=== PATIENT | male | born 1985 | race Caucasian/White ===

== ENCOUNTER 2021-07-28 10:56 | Inpatient (IN) | payer OTHER ==
[~2021-07-28] VITALS: Ht 170.2 cm; Wt 88.3 kg
[~2021-07-28 10:56] MED LIST: HYDR-3490 PO; LISI10TA22 PO
--- OUTSIDE RECORDS SUMMARY | 2021-07-28 11:03 | CCD | Continuity of Care Document ---
Author Author Adrianne GUTIERREZ MD Organization Unknown Address [address] [place] [address] Phone [phone] Care Team Providers Care Rack Washer Name Role Phone [facility] AUTThania Unavailable Problems Active Problems Provider Date Essential hypertension Onset: Alcoholic liver damage Onset: Social History Type Date Description Comments Sex Unknown Tobacco Use Start: Unknown Never Smoked Cigarettes Tobacco Use Start: Unknown Never Smoked Cigars Tobacco Use Start: Unknown Never Smoked A Pipe Tobacco Use Start: Unknown Never Used Smokeless Tobacco ETOH Use Denies alcohol use Tobacco Use Start: Unknown Patient has never smoked Recreational Drug Use Denies Drug Use Allergies, Adverse Reactions, Alerts Description No Known Drug Allergies Medications Active Medications SIG Qnty Indications Ordering Provide r Date Furosemide 40mg Tablets Rigoberto Rolon Vemlidy 25mg Tablets Unknown Lisinopril-Hydrochlorothiazide 20-12.5mg Tablets 1 by mouth every day Unknown 000 Immunizations Description No Information Available Vital Signs Date Vital Result Comment 07/16/2021 2:25pm BP Systolic 142 mmHg BP Diastolic 88 mmHg Heart Rate 77 /min Body Temperature 98.6 F Respiratory Rate 18 /min O2 % BldC Oximetry 97 % Weight 187.00 lb Weight 84.823 kg Height 67 inches 5'7" BMI (Body Mass Index) 29.3 kg/m2 BSA (Body Surface Area) 1.97 m2 06/10/2021 11:31am BP Systolic 160 mmHg BP Diastolic 103 mmHg Heart Rate 56 /min O2 % BldC Oximetry 98 % Weight 176.00 lb Weight 79.834 kg Height 67 inches 5'7" BMI (Body Mass Index) 27.6 kg/m2 BSA (Body Surface Area) 1.92 m2 Results Test Acquired Date Facility Test Result H/L Range Note Inhouse [facility] 06/10/2021 In Office [facility] Color yellow Normal: Yellow Ua Appearance clear Normal: Clear Spec [place] 1.005 1.001-1.030 Ua PH Test Strip 5 5-9 Leukocytes - Normal: Negative Ua Nitrate - Normal: Negative Ua Protein - Normal: Negative Inhouse Glucose - Normal: Negative Ua Ketones - Noraml: Negative Urobilinogen - Normal: Negative Ua Bilirubin - Normal: Negative Blood - Noraml: Negative Procedures Date Code Description Status 07/16/2021 59836 Office/Outpatient New Low MDM 30 -44 Minutes Completed 06/10/2021 69475 Office/Outpatient New Moderate M DM 45-59 Minutes Completed Medical Devices Description No Information Available Encounters Type Date Location Provider Dx Diagnosis Office Visit 07/16/2021 2:30p [facility] Satya Gutierrez MD N 43.2 Other hydrocele K42.9 Umbilical hernia without obs truction or gangrene K70.31 Alcoholic cirrhosis of liver with ascites Assessments Date Code Description Provider 07/16/2021 N43.2 Other hydrocele Satya Gutierrez MD 07/16/2021 K42.9 Umbilical hernia without obstruc tion or gangrene Satya Gutierrez MD 07/16/2021 K70.31 Alcoholic cirrhosis of liver wit h ascites Satya Gutierrez MD 06/10/2021 N43.2 Other hydrocele Thania Bhatt 06/10/2021 Z71.2 Person consulting fo r explanation of examination or test findings Jake Martell M.D. Plan of Treatment 07/16/2021 - Satya Gutierrez MD* N43.2 Other hydrocele* Comments:* He probably would benefit from an attempt at ligation of the patent processes vaginalis. However, some risk of postoperative ascitic leak. * K42.9 Umbilical hernia without obstruction or gangrene* Comments:* If the patient is taken to surgery for ligation of the patent processes vaginalis would consider repair of the umbilical hernia at that time. * K70.31 Alcoholic cirrhosis of liver with ascites* Comments:* Discussed the situation with his flight attendant ramp to see if he should have additional treatment for his ascites prior to attempt at processes vaginalis ligation and also to inquire whether a second opinion from a surgeon associated with a flight attendant ramp as appropriate.I will contact the patient after I have had a discussion with the flight attendant ramp. Functional Status Description No Information Available Mental Status Description No Information Available Referrals Description No Information Available
--- OUTSIDE RECORDS SUMMARY | 2021-07-28 11:03 | CCD | Continuity of Care Document ---
Author Author Adrianne GUTIERREZ MD Organization Unknown Address [address] [place] [address] Phone [phone] Care Team Providers Care Hyperion Essbase Developer Name Role Phone [facility] [employer] Unavailable Problems Active Problems Provider Date [...] Yellow Ua Appearance clear Normal: Clear Spec [place] 1.005 1.001-1.030 Ua PH Test Strip 5 5-9 Leukocytes - Normal: Negative Ua Nitrate - Normal: Negative Ua Protein - Normal: Negative Inhouse Glucose - Normal: Negative Ua Ketones - Noraml: Negative Urobilinogen - Normal: Negative Ua Bilirubin - Normal: Negative Blood - Noraml: Negative Procedures Date Code Description Status 07/16/2021 35422 Office/Outpatient New Low MDM 30 -44 Minutes Completed 06/10/2021 26594 Office/Outpatient New Moderate M DM 45-59 Minutes Completed Medical Devices Description No Information Available Encounters Type Date Location Provider Dx Diagnosis Office Visit 07/16/2021 2:30p [facility] Satya Gutierrez MD N 43.2 [...] ascites* Comments:* Discussed the situation with his cocoa mill operator to see if he should have additional treatment for his ascites prior to attempt at processes vaginalis ligation and also to inquire whether a second opinion from a surgeon associated with a cocoa mill operator as appropriate.I will contact the patient after I have had a discussion with the cocoa mill operator. Functional Status Description No Information Available Mental Status Description No Information Available Referrals Description No Information Available
--- OUTSIDE RECORDS SUMMARY | 2021-07-28 11:03 | CCD | Continuity of Care Document ---
Author Author Adrianne GUTIERREZ MD Organization Unknown Address [address] [place] [address] Phone [phone] Care Team Providers Care Community Mental Health Worker Name Role Phone [facility] [place] [facility] AUT[employer]ania Unavailable Problems Active Problems Provider [...] Yellow Ua Appearance clear Normal: Clear Spec [place] 1.005 1.001-1.030 Ua PH Test Strip 5 5-9 Leukocytes - Normal: Negative Ua Nitrate - Normal: Negative Ua Protein - Normal: Negative Inhouse Glucose - Normal: Negative Ua Ketones - Noraml: Negative Urobilinogen - Normal: Negative Ua Bilirubin - Normal: Negative Blood - Noraml: Negative Procedures Date Code Description Status 07/16/2021 62131 Office/Outpatient New Low MDM 30 -44 Minutes Completed 06/10/2021 99848 Office/Outpatient New Moderate M DM 45-59 Minutes Completed Medical Devices Description No Information Available Encounters Type Date Location Provider Dx Diagnosis Office Visit 07/16/2021 2:30p [facility] Satya Gutierrez MD N 43.2 [...] ascites* Comments:* Discussed the situation with his industrial safety and health technician to see if he should have additional treatment for his ascites prior to attempt at processes vaginalis ligation and also to inquire whether a second opinion from a surgeon associated with a industrial safety and health technician as appropriate.I will contact the patient after I have had a discussion with the industrial safety and health technician. Functional Status Description No Information Available Mental Status Description No Information Available Referrals Description No Information Available
--- OUTSIDE RECORDS SUMMARY | 2021-07-28 11:03 | CCD | Continuity of Care Document ---
Author Author Urology Resource Schedule, Aysha Gill Organization Unknown Address [address] [place] [address] Phone [phone] Care Team Providers Care Datastage Architect Name Role Phone [facility] [place] [facility] AUT Unavailable Problems Description No Information Available Social History Type Date Description Comments Sex Unknown Allergies, Adverse Reactions, Alerts Description No Information Available Medications Description No Information Available Immunizations Description No Information Available Vital Signs Description No Information Available Results Test Acquired Date Facility Test Result H/L Range Note Inhouse Ua 06/10/2021 In Office Ua Color yellow Normal: Yellow Ua Appearance clear Normal: Clear Spec [place] 1.005 1.001-1.030 Ua PH Test Strip 5 5-9 Leukocytes - Normal: Negative Ua Nitrate - Normal: Negative Ua Protein - Normal: Negative Inhouse Glucose - Normal: Negative Ua Ketones - Noraml: Negative Urobilinogen - Normal: Negative Ua Bilirubin - Normal: Negative Blood - Noraml: Negative Procedures Description No Information Available Medical Devices Description No Information Available Encounters Description No Information Available Assessments Description No Information Available Plan of Treatment No Information Available Functional Status Description No Information Available Mental Status Description No Information Available Referrals Description No Information Available
--- OUTSIDE RECORDS SUMMARY | 2021-07-28 11:03 | CCD | Continuity of Care Document ---
Author Author Adrianne GUTIERREZ MD Organization Unknown Address [address] [place] [address] Phone [phone] Care Team Providers Care Forward Air Controller/Air Officer Name Role Phone [facility] [place] [facility] AUTThania Unavailable Problems Active Problems Provider [...] Yellow Ua Appearance clear Normal: Clear Spec [place] 1.005 1.001-1.030 Ua PH Test Strip 5 5-9 Leukocytes - Normal: Negative Ua Nitrate - Normal: Negative Ua Protein - Normal: Negative Inhouse Glucose - Normal: Negative Ua Ketones - Noraml: Negative Urobilinogen - Normal: Negative Ua Bilirubin - Normal: Negative Blood - Noraml: Negative Procedures Date Code Description Status 07/16/2021 27416 Office/Outpatient New Low MDM 30 -44 Minutes Completed 06/10/2021 86487 Office/Outpatient New Moderate M DM 45-59 Minutes Completed Medical Devices Description No Information Available Encounters Type Date Location Provider Dx Diagnosis Office Visit 07/16/2021 2:30p [facility] Satya Gutierrez MD N [...] ascites* Comments:* Discussed the situation with his poultry offal worker to see if he should have additional treatment for his ascites prior to attempt at processes vaginalis ligation and also to inquire whether a second opinion from a surgeon associated with a poultry offal worker as appropriate.I will contact the patient after I have had a discussion with the poultry offal worker. Functional Status Description No Information Available Mental Status Description No Information Available Referrals Description No Information Available
--- OUTSIDE RECORDS SUMMARY | 2021-07-28 11:03 | CCD ---
Continuity of Care Document (CCD) Created on: 06/10/2021 Adrianne Mcknight External Reference #: [id number] : 1985 Sex: Male Author Author Adrianne VELA M.D. Organization Unknown Address [facility] [address] [place] [address] Phone [phone] Care Team Providers Care Clearing Supervisor Name Role Phone [facility] [place] [facility] [employer]Thania Unavailable Problems Active Problems Provider [...] Tablets 1 by mouth every day Unknown 0 000 Immunizations Description No Information Available Vital Signs Date Vital Result Comment 06/10/2021 11:31am BP Systolic 160 mmHg BP [...] Yellow Ua Appearance clear Normal: Clear Spec [place] 1.005 1.001-1.030 Ua PH Test Strip 5 5-9 Leukocytes - Normal: Negative Ua Nitrate - Normal: Negative Ua Protein - Normal: Negative Inhouse Glucose - Normal: Negative Ua Ketones - Noraml: Negative Urobilinogen - Normal: Negative Ua Bilirubin - Normal: Negative Blood - Noraml: Negative Procedures Date Code Description Status 06/10/2021 58946 Office/Outpatient New MDM 15- 29 Minutes Completed Medical Devices Description No Information Available Encounters Type Date Location Provider Dx Diagnosis Office Visit 06/10/2021 11:00a [facility] Jake Vela M.D. N43.2 Other hydrocele Z71.2 Person consulting for explan ation of exam or test findings Assessments Date Code Description Provider 06/10/2021 N43.2 Other hydrocele Thania Bhatt 06/10/2021 Z71.2 Person consulting fo r explanation of examination or test findings Jake Vela M.D. Plan of Treatment 06/10/2021 - Jake Vela M.D.* N43.2 Other hydrocele* Comments:* 1. Patient presents to the clinic today for evaluation and management of testicular swelling.2. Physical examination showed left communicating hydrocele, otherw ise unremarkable.3. In house urinalysis was negative which today. Urine culture and sensitivity done on 04/27/21 did not show any growth.4. Patient was referred to General Surgery for surgical corrections.5. Patient verbalized understanding and agreed to the care plan. All of his questions were answered. 6. Patient was advised to call or RTC if he develops any new concerns or complaints.7. No scheduled follow-up appointment at this time, will be glad to see patient back as needed. * Z71.2 Person consulting for explanation of examination or test findings* Comments:* Urinalysis done on 04/28/21 was negative. Urine culture and sensitivity done on 04/27/21 did not show any growth.Result was reviewed with the patient at length. Functional Status Description No Information Available Mental Status Description No Information Available Referrals Description No Information Available
--- OUTSIDE RECORDS SUMMARY | 2021-07-28 11:04 | CCD ---
Author Author [facility] Organization [facility] Address Unknown Phone Unavailable Care Team Providers Care Senior Business Process Analyst Name Role Phone Sondra GUTIERREZ MD Unavailable Unavailable Sondra GUTIERREZ MD Unavailable Unavailable Sondra GUTIERREZ MD Unavailable Unavailable Sondra GUTIERREZ MD Unavailable Unavailable Sondra GUTIERREZ MD Unavailable Unavailable Sondra GUTIERREZ MD Unavailable Unavailable Sondra GUTIERREZ MD Unavailable Unavailable Sondra GUTIERREZ MD Unavailable Unavailable Sondra GUTIERREZ MD Unavailable Unavailable Sondra GUTIERREZ MD Unavailable Unavailable Sondra GUTIERREZ MD Unavailable Unavailable Sondra GUTIERREZ MD Unavailable Unavailable Sondra GUTIERREZ MD Unavailable Unavailable Sondra GUTIERREZ MD Unavailable Unavailable Sondra GUTIERREZ MD Unavailable Unavailable Sondra GUTIERREZ MD Unavailable Unavailable Abiel VELA MD Unavailable Unavailable Abiel VELA MD Unavailable Unavailable Abiel VELA MD Unavailable Unavailable Abiel VELA MD Unavailable Unavailable Abiel VELA MD Unavailable Unavailable Abiel VELA MD Unavailable Unavailable Abiel VELA MD Unavailable Unavailable Abiel VELA MD Unavailable Unavailable Abiel VELA MD Unavailable Unavailable Abiel VELA MD Unavailable Unavailable Abiel VELA MD Unavailable Unavailable Abiel VELA MD Unavailable Unavailable Abiel VELA MD Unavailable Unavailable Abiel VLEA MD Unavailable Unavailable Abiel VELA MD Unavailable Unavailable Abiel VELA MD Unavailable Unavailable Abiel VELA MD Unavailable Unavailable Abiel VELA MD Unavailable Unavailable Abiel VELA MD Unavailable Unavailable Abiel VELA MD Unavailable Unavailable Abiel VELA MD Unavailable Unavailable OBEN, T DANNIE MD Unavailable Unavailable OBEN, T DANNIE MD Unavailable Unavailable OBEN, T DANNIE MD Unavailable Unavailable OBEN, T DANNIE MD Unavailable Unavailable OBEN, T DANNIE MD Unavailable Unavailable OBEN, T DANNIE MD Unavailable Unavailable OBEN, T DANNIE MD Unavailable Unavailable OBEN, T DANNIE MD Unavailable Unavailable OBEN, T DANNIE MD Unavailable Unavailable OBEN, T DANNIE MD Unavailable Unavailable OBEN, T DANNIE MD Unavailable Unavailable OBEN, T DANNIE MD Unavailable Unavailable OBEN, T DANNIE MD Unavailable Unavailable OBEN, T DANNIE MD Unavailable Unavailable OBEN, T DANNIE MD Unavailable Unavailable OBEN, T DANNIE MD Unavailable Unavailable OBEN, T DANNIE MD Unavailable Unavailable OBEN, T DANNIE MD Unavailable Unavailable OBEN, T DANNIE MD Unavailable Unavailable OBEN, T DANNIE MD Unavailable Unavailable OBEN, T DANNIE MD Unavailable Unavailable OBEN, T DANNIE MD Unavailable Unavailable OBEN, T DANNIE MD Unavailable Unavailable OBEN, T DANNIE MD Unavailable Unavailable OBEN, T DANNIE MD Unavailable Unavailable OBEN, T DANNIE MD Unavailable Unavailable OBEN, T DANNIE MD Unavailable Unavailable OBEN, T DANNIE MD Unavailable Unavailable OBEN, T DANNIE MD Unavailable Unavailable OBEN, T DANNIE MD Unavailable Unavailable OBEN, T DANNIE MD Unavailable Unavailable OBEN, T DANNIE MD Unavailable Unavailable OBEN, T DANNIE MD Unavailable Unavailable OBEN, T DANNIE MD Unavailable Unavailable OBEN, T DANNIE MD Unavailable Unavailable OBEN, T DANNIE MD Unavailable Unavailable Sondra GUTIERREZ MD Unavailable Unavailable Sondra GUTIERREZ MD Unavailable Unavailable Sondra GUTIERREZ MD Unavailable Unavailable Sondra GUTIERREZ MD Unavailable Unavailable Sondra GUTIERREZ MD Unavailable Unavailable Sondra GUTIERREZ MD Unavailable Unavailable Sondra GUTIERREZ MD Unavailable Unavailable Sondra GUTIERREZ MD Unavailable Unavailable Sondra GUTIERREZ MD Unavailable Unavailable Sondra GUTIERREZ MD Unavailable Unavailable Sondra GUTIERREZ MD Unavailable Unavailable Sondra GUTIERREZ MD Unavailable Unavailable Sondra GUTIERREZ MD Unavailable Unavailable Sondra GUTIERREZ MD Unavailable Unavailable Sondra GUTIERREZ MD Unavailable Unavailable Sondra GUTIERREZ MD Unavailable Unavailable OBEN, T DANNIE Unavailable Unavailable OBEN, T DANNIE MD Unavailable Unavailable OBEN, T DANNIE MD Unavailable Unavailable OBEN, T DANNIE MD Unavailable Unavailable OBEN, T DANNIE MD Unavailable Unavailable OBEN, T DANNIE MD Unavailable Unavailable OBEN, T DANNIE MD Unavailable Unavailable OBEN, T DANNIE MD Unavailable Unavailable OBEN, T DANNIE MD Unavailable Unavailable OBEN, T DANNIE MD Unavailable Unavailable OBEN, T DANNIE MD Unavailable Unavailable OBEN, T DANNIE MD Unavailable Unavailable OBEN, T DANNIE MD Unavailable Unavailable OBEN, T DANNIE MD Unavailable Unavailable OBEN, T DANNIE MD Unavailable Unavailable OBEN, T DANNIE MD Unavailable Unavailable OBEN, T DANNIE MD Unavailable Unavailable OBEN, T DANNIE MD Unavailable Unavailable OBEN, T DANNIE MD Unavailable Unavailable OBEN, T DANNIE MD Unavailable Unavailable OBEN, T DANNIE MD Unavailable Unavailable OBEN, T DANNIE MD Unavailable Unavailable OBEN, T DANNIE MD Unavailable Unavailable OBEN, T DANNIE MD Unavailable Unavailable OBEN, T DANNIE MD Unavailable Unavailable OBEN, T DANNIE MD Unavailable Unavailable OBEN, T DANNIE MD Unavailable Unavailable OBEN, T DANNIE MD Unavailable Unavailable OBEN, T DANNIE MD Unavailable Unavailable OBEN, T DANNIE MD Unavailable Unavailable OBEN, T DANNIE MD Unavailable Unavailable OBEN, T DANNIE MD Unavailable Unavailable OBEN, T DANNIE MD Unavailable Unavailable OBEN, T DANNIE MD Unavailable Unavailable OBEN, T DANNIE MD Unavailable Unavailable OBEN, T DANNIE MD Unavailable Unavailable OBEN, T DANNIE MD Unavailable Unavailable OBEN, T DANNIE MD Unavailable Unavailable OBEN, T DANNIE MD Unavailable Unavailable OBEN, T DANNIE MD Unavailable Unavailable OBEN, T DANNIE MD Unavailable Unavailable OBEN, T DANNIE MD Unavailable Unavailable OBEN, T DANNIE MD Unavailable Unavailable OBEN, T DANNIE MD Unavailable Unavailable OBEN, T DANNIE MD Unavailable Unavailable OBEN, T DANNIE MD Unavailable Unavailable OBEN, T DANNIE MD Unavailable Unavailable OBEN, T DANNIE MD Unavailable Unavailable OBEN, T DANNIE MD Unavailable Unavailable OBEN, T DANNIE MD Unavailable Unavailable OBEN, T DANNIE MD Unavailable Unavailable OBEN, T DANNIE MD Unavailable Unavailable OBEN, T DANNIE MD Unavailable Unavailable OBEN, T DANNIE MD Unavailable Unavailable OBEN, T DANNIE MD Unavailable Unavailable OBEN, T DANNIE MD Unavailable Unavailable OBEN, T DANNIE MD Unavailable Unavailable Taisha Dutta MD (Jack) Unavailable Unavailable Tin, Taisha Jean (Augusto) MD Unavailable Unavailable Tin, Taisha Jean (Augusto) MD Unavailable Unavailable Tin, Taisha Jean (Augusto) MD Unavailable Unavailable Tin, Taisha Jean (Augusto) MD Unavailable Unavailable Tin, Taisha Jean (Augusto) MD Unavailable Unavailable Tin, Taisha Jean (Augusto) MD Unavailable Unavailable Tin, Taisha Jean (Augusto) MD Unavailable Unavailable Tin, Taisha Jean (Augusto) MD Unavailable Unavailable Tin, Taisha Jean (Augusto) MD Unavailable Unavailable Tin, Taisha Jean (Augusto) MD Unavailable Unavailable Tin, Taisha Jean (Augusto) MD Unavailable Unavailable Tin, Taisha Jean (Augusto) MD Unavailable Unavailable Tin, Taisha Jean (Augusto) MD Unavailable Unavailable Tin, Taisha Jean (Augusto) MD Unavailable Unavailable Tin, Taisha Jean (Augusto) MD Unavailable Unavailable Tin, Taisha Jean (Augusto) MD Unavailable Unavailable Tin, Taisha Jean (Augusto) MD Unavailable Unavailable Tin, Taisha Jean (Augusto) MD Unavailable Unavailable Tin, Taisha Jean (Augusto) MD Unavailable Unavailable Tin, Taisha Jean (Augusto) MD Unavailable Unavailable Tin, Taisha Jean (Augusto) MD Unavailable Unavailable Tin, Taisha Jean (Augusto) MD Unavailable Unavailable Tin, Taisha Jean (Augusto) MD Unavailable Unavailable Tin, Taisha Jean (Augusto) MD Unavailable Unavailable Tin, Taisha Jean (Augusto) MD Unavailable Unavailable Tin, Taisha Jean (Augusto) MD Unavailable Unavailable Tin, Taisha Jean (Augusto) MD Unavailable Unavailable Tin, Taisha Jean (Augusto) MD Unavailable Unavailable Tin, Taisha Jean (Augusto) MD Unavailable Unavailable Tin, Taisha Jean (Augusto) MD Unavailable Unavailable Tin, Taisha Jean (Augusto) MD Unavailable Unavailable Tin, Taisha Jean (Augusto) MD Unavailable Unavailable Tin, Taisha Jean (Augusto) MD Unavailable Unavailable Tin, Taisha Jean (Augusto) MD Unavailable Unavailable Tin, Taisha Jean (Augusto) MD Unavailable Unavailable Tin, Taisha Jean (Augusto) MD Unavailable Unavailable Tin, Taisha Jean (Augusto) MD Unavailable Unavailable Tin, Taisha Jean (Augusto) MD Unavailable Unavailable Tin, Taisha Jean (Augusto) MD Unavailable Unavailable Tin, Taisha Jean (Augusto) MD Unavailable Unavailable Tin, Taisha Jean (Augusto) MD Unavailable Unavailable Tin, Taisha Jean (Augusto) MD Unavailable Unavailable Tin, Taisha Jean (Augusto) MD Unavailable Unavailable Tin, Taisha Jean (Augusto) MD Unavailable Unavailable Tin, Taisha Jean (Augusto) MD Unavailable Unavailable Tin, Taisha Jean (Augusto) MD Unavailable Unavailable Tin, Taisha Jean (Augusto) MD Unavailable Unavailable Tin, Taisha Jean (Augusto) MD Unavailable Unavailable Tin, Taisha Jean (Augusto) MD Unavailable Unavailable Tin, Taisha Jean (Augusto) MD Unavailable Unavailable Tin, Taisha Jean (Augusto) MD Unavailable Unavailable Tin, Taisha Jean (Augusto) MD Unavailable Unavailable Tin, Taisha Jean (Augusto) MD Unavailable Unavailable Tin, Taisha Jean (Augusto) MD Unavailable Unavailable Tin, Taisha Jean (Augusto) MD Unavailable Unavailable Tin, Taisha Jean (Augusto) MD Unavailable Unavailable Tin, Taisha Jean (Augusto) MD Unavailable Unavailable Re-disclosure Warning The records that you are about to access may contain information from federally-assisted alcohol or drug abuse programs. If such information is present, then the following federally mandated warning applies: This information has been disclosed to you from records protected by federal confidentiality rules (42 CFR part 2). The federal rules prohibit you from making any further disclosure of this information unless further disclosure is expressly permitted by the written consent of the person to whom it pertains or as otherwise permitted by 42 CFR part 2. A general authorization for the release of medical or other information is NOT sufficient for this purpose. The Federal rules restrict any use of the information to criminally investigate or prosecute any alcohol or drug abuse patient.The records that you are about to access may contain highly sensitive health information, the redisclosure of which is protected by Article 27-F of the [facility] Public Health law. If you continue you may have access to information: Regarding HIV / AIDS; Provided by facilities licensed or operated by the [facility] Office of Mental Health; or Provided by the [facility] Office for People With Developmental Disabilities. If such information is present, then the following [facility] mandated warning applies: This information has been disclosed to you from confidential records which are protected by state law. State law prohibits you from making any further disclosure of this information without the specific written consent of the person to whom it pertains, or as otherwise permitted by law. Any unauthorized further disclosure in violation of state law may result in a fine or retirement sentence or both. A general authorization for the release of medical or other information is NOT sufficient authorization for further disc losure. Encounters Encounter Providers Location Date Indications Data Source(s ) Outpatient Attender: JARAD GUTIERREZ MD Family Practice 07/16/2021 0 2:30:00 PM EDT [facility] ([facility]) Outpatient Attender: JARAD GUTIERREZ MD 2020 02:22:00 PM EDT - 07/16/2021 02:22:00 PM EDT [facility] Outpatient Attender: DANNIE VELA MD 06/10/20 11:03:00 AM EDT - 06/10/2021 11:03:00 AM EDT [facility] Outpatient Attender: DANNIE VELA MD Family Practice 06/10/2021 11:00:0 0 AM EDT [facility] ([facility]) Attender: Taisha Dutta MD (Jack) 08/01/2020 08: 20:10 PM EDT [facility] Attender: Taisha Dutta MD (Jack) 07/31/2020 08: 20:10 PM EDT [facility] Attender: Taisha Dutta MD (Jack) 07/25/2020 08: 20:10 PM EDT [facility] Attender: Taisha Dutta MD (Jack) 06/26/2020 08: 20:09 PM EDT [facility] Medications No Information Insurance Providers Payer name Policy type / Coverage type Policy ID Covered democrat ID Covered democrat's relationship to de anda Policy De Anda Plan Information [facility] U [id number] Self [id number] Spectafy [id number] [facility] [place] [id number] 18 [id number] [facility] ACTIVE DUTY [id number] SP [id number] ACTIVE DUTY [id number] SP [id number] [facility] Problems, Conditions, and Diagnoses Code Display Name Description Problem Type Effective Dates Data Source(s) N432 Other hydrocele Other hydrocele Diagnosis 06/10/2021 11:0 3:00 AM EDT [facility] Surgeries/Procedures Procedure Description Date Indications Data Source(s) OFFICE OUTPATIENT NEW 30 MINUTES 07/16/2021 12:00:00 A M EDT [facility] ([facility]) OFFICE OUTPATIENT NEW 45 MINUTES 06/10/2021 12:00:00 A M EDT [facility] ([facility]) OFFICE OUTPATIENT NEW 20 MINUTES 06/10/2021 12:00:00 A M EDT [facility] ([facility]) Results ID Date Data Source [id number] 06/10/2021 03:48:00 PM EDT [facility] ([facility]) Name Value Range Interpretation Code Description Data Francine rce(s) Supporting Document(s) Appearance of Urine Laboratory test result [facility] ([facility]) Color of Urine Laboratory test result [facility] ([facility]) Spec [place] 1.005 1.001-1.030 [facility] ([facility]) Leukocytes Laboratory test result [facility] ([facility]) Nitrate [Presence] in Urine Laboratory test result [facility] ([facility]) pH of Urine by Test strip 5 5-9 [facility] NT ([facility]) Protein [Presence] in Urine by Test strip Laboratory test result [facility] ([facility]) Inhouse Glucose Laboratory test result [facility] ([facility]) Urobilinogen Laboratory test result [facility] ([facility]) Bilirubin.total [Presence] in Urine by Test strip Laboratory test res ult [facility] ([facility]) Ketones [Presence] in Urine by Test strip Laboratory test result [facility] ([facility]) Blood type and Indirect antibody screen panel - Blood Laboratory test result [facility] ([facility]) ID Date Data Source [id number] 07/31/2020 01:00:00 PM EDT [facility] Name Value Range Interpretation Code Description Data Francine rce(s) Supporting Document(s) Follow Up [facility] WTOMKu5lIlMXWvAqPBVgTuwCAWibMEbnPSZiN9C1MFywMl4NXQeznvUfWNYgOm9+KGQtVB7hqd3mDTNj gMy [file] mineral engineer+Yanb8K02//beGSofxX/0yO+DBEjxbcTyCOAmiY0HXCPYxALhrGmBruz2GXDZw6uLOFylhNc9x8/u9 [file] ywGJrUFRTlf/wNrFtqyVRipMTFUGTKnKpHxmLbLHHH ZHhgXFUH3na3PuAXfx8lyWtTtaW8gcqWwrMwjPFTPLFP45nPgLsz9f+2ynPRU1W17Ws6jWzSzcgqQOki E4BO8I7rU4sm6ZL1Cs+lAbKuHD+tDiMvSfY8Y//5bFGD4u78KvC507AqP65C+cGp5YFsB/f7U4Vq4FsR l48XeS0GyOjL+Zgxns4KWxwGKT/DpUVdKnogYxkuI0 MoSX7iiFnoYQYvNV8pAJowyHYVn6jzif+LRNRuPlsAXllj/pYTJid14epfPEOou73eY3O0iN5rwa7+b5 bAX+nOb+06ABDx8zkkf7TIVoQ5VONeLEqj4tetk4qAYcUkvdoHPGE0zXO748kbXDlqMHdBO1m6+3Sm/o 0pzd2TSSRuDG67cEqrA8765MNg3+EuB7Jgcr+e7V6h mGhb4xhNaWDOIs9+K/Side Stitcher/Z8pSJ2HjcTI0Tbo350cBZ2A5G5rB5ADn8A4KhFa/ojCjwO037NXztY4n+a X75aBTt1nUEaVFosjVJmFMjyNLLo6WEwlaUfiVvWCjN2x+suiDCvvq+WizY8oeDfq7Wg02O00pXEk/kK 07hfzQ+Epw+qXuR2UtqGcM7HH6vlR/88QKv1Vmrn55 P7+UnQtxTj0AR5VbDgRlKL15ePX5pBAMyhFVauK7v1mAWJsO+U3W3oCMb8T2ZvRPtk8yglwtT2R1+asF +ZvakANcxSyPz0iqF19j73hPm0Vv1xIAlZ06959Cyhhd0+bBcP6Z2X1kYHj3Yf5S5WWKmxVELt1EWvoO 059ErOEU0Za7q7a3O5O88E6B6r6NLBozOeb1pdkg10 [file] vp platforms+5UD7qxe/dt+/KrSemLax/FaKom5jZTsBiYZLLIs [file] f+qZBZgfldHTPd4JT96pL3YaIlL5Yub4DzpEF34tjdU3cS6SD0Ts4goWe769p91hu+yarn spinner/92qJt+Wm+t [file] iP++Iván/+HOWqOqjm+WjXXXFNqLOlfmdKj+HErEgYlOcqVuhHEjVrp9Z2KLnnsfUDZ5nmAbCwCeVduzU YppjGd5SSm1sy7Wxvye6GZfzapCuk6vj8tq2od88OduCs629P1FlUOeR5M/AeAneNH+HI7dHvMYfOi5c Y5ABecEZjI3MyXJW9Wo31QXJu4Fd/BL1INWcbQja2A J6HU4U6cDfNe+rCWcINnGKLgP4dWati2sEJQsHuum/1Zdf0Pewb00mAuAJRmv/Kk18ba7Zku2xsbFYRB 02iNohb2YE5ZNKPsB3Ef9K7LY1VTikrHGhI7rxnR7NeKHzBJw8J77I2nsrTbv6s+/Pizano/6IeyGViJujkf [file] QqI7PVX4wHWqWg5CQBW9Xqt4PNvuJOPKFw== ID Date Data Source [id number] 07/31/2020 12:00:00 AM EDT [facility] Name Value Range Interpretation Code Description Data Francine rce(s) Supporting Document(s) SARS coronavirus 2 RNA panel N [facility] This lab was ordered by [facility], [place] ([facility]) and reported by [facility]. 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+HozUh9CVsLwnbZriMxUIjVSD9PLOUlbX5SQryd [file] CÉSAR+8hUumY/++Q1qLfKpwPFrwKODp3cciskPBT1zom [file] 5zTojme+BdKpkq32rl0oM4SsRdrGEYBnkPYE0ah7e2f7ihcP7mN08YFBjrmF8uVu+l+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 helper/rl0YPtkfp c42Zep/tNf/+iZ4epzoYKTvzw21ROJ8xkJ4MONh8Mtto237y/zcqULyCP/rw95/rEl+rYnU+J8b/Ih3z E1tcs4cdq8v2a/eWzRD+8FlVvs345sg7lfHy6PKqYj ybDmKqw07+60WVorWeMv561MF46VRZ59Aae5v5xydpiWYgTG6OTrf9O/a/X7p5hm/lmhgz2WO3Pd6uy3 LhTMLvxpEvFz6LZttBSSbu5xKMWvG8//t1LQ/18PdKDQHWCQf/JSgLf0N9kRKuZkWiXiIunVcFmDMb5m 6t7KEHVLMzETMEqqlvoO443gqFVRCbspnON4NWECnL [file] sat6oyLRU6ZsxdWnxEj+vJeAmtN63k8+A3BE42e/Simón/Nk+vGCcLqwMr+0UWavFeb7v/WYQMOOhTRsZF aza4AMpSFB8abIN4Q+huWNVRYPPtik4aF8ueIM5rdg 2QUg9TqpBfe8K/+UDtiHhMf668aqSl/KzRFFCtJDSVkVwfQ1YScKzm3h3D1L+mTOTvX82ZPD2QPUBXOk CP03Jv2ATV1B7lzbYNCy9t9pbUrLnYPd1UW31QadTQTcmEq+Vw+tHNd07jMP9nekqXfz3XBC3b3QLZuj YPLg8t9dgxXgQPVCjtmWmQiEQGGbLfwh6NuBgZbRK2 lnceneVsH1o9+oh3gyIlwDGmXQflj4W47YwUTzmrqgrwLo5pAGyLjQAetRcJTXO2G5puF/ZoVQYIsHAF 3xffYzd7uHobPN+hoVURxAt0JvKKyZsIEgJMeZYDqm5oV43obN6Y8taTowylFeEakxx0EJK9Q9EUVnmX jwqMnidyFkXN7O5WGNuL+L7WkvCP/upaH2lnckMTUf RlaJA2bItSfNUzRQ+0Q5sjrgeBgdD4srlLm7TUSvMhgf/Nicho/xabbJFRUhwyszvM5/zl/mGyxzWpaHfD [file] vp platforms+GPFJ/zusuCtqzoXjKV/AQNmk2v1y8EMaUVQA1/qecl155sZUKFYFAX1JiSbzV+bXoFV5mE47s4K+e [file] +4tHoeELPYWM+I3xoo3tFrg/VMEM1N+iobKazjWc/FoEBIwVbiiATG62hwot942oVHFRXLq3QdWl+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 [file] aKm8juNXwt56jIUX8yLAIg9Q1YrSO+5XAjmM1dnjV3wfEt5ujQ4EVIsUb3VHGMVL6NDjZZ0Au/rG+Nguyễn [file] 2V49+oP2AYQCGX1sR6AZnOXi5XWPQhSil7ewfhWa2Y+nN/8UJggGrxv9k1NUa0L71iFnfxEPvDp5H/Salgado SI3UIAkzSKqZT7w0eTgyf9bh0pz81gb6QXzpYH5aOI Ik9wT1+iZxQxfxA1V+ThQUJrAn3C1YkCEZ/xLlxxNMTvvcgAlz8wBOxQYO18E4g8fhwyEK7lb0squZrQ h1njR0EC4IKf8LexNhHdndfxKK2YzGDdp4TBeZFlL/EYfbxI3uK302HP9djWwb5hj2wLIMA8qnr76cf7 1n0IgCvcWfP/L7/cjntsVwPYt3JvXE5in/aGqY0Skr vLNajLU08gLEI6SAHSL+5yY/xxuPTkgk1w5VTHByAiMIkSNOLNHdMHWixFpezYCU6l6InGKZdJGtiW2L dcv+GD4ntPpTkoOHwlbmmB0ssVo9pYhxZq+C801mthUBdsteM1j7/Uky4Hmu8s6LQyqiL3yvJ4xs/cJP OKiz55kq9r6XVj1QmPrMI7hdCKd625CajbI7hZV7Av QfiP5vkvaO+Ho3uY/D6VQBX0JOpwhfUaiYIhPM4SQA9bh2QcKAQrPFVwr5DvAFv6W2rsbui6sSSeJH9+ j0IqTYPpYKyvLsRoXrHgHTPyXzjrCPVqZSEfwXuzRU8hPdKLhscATSofelFicSHhCR0XLS4ts4VaUDVr WPGzd1KxQXd5Q3GhvENtrkVaNpmfvXMOZMWiGSOpJO CzY7FwICSqF3dVKNv4Z1Z2ANK4YXJOIVDsMnCEBxgXFaHHLKRFDlHuSnD8NLY+MKocSXRUOqC6GBN9Fs A4BzSYEXO4CfZ3PHTJGUIWPuCsMQ1aB2Nin7AwREWjUQUwFS5trmPgTMIqFs6XqLwdRZO4Q1W0pODuG9 tMURJtBmMoEWC7FVIyBr8nlNGvRB4HCtmwH7AhURKw YASSXGDSAkx+CFCALXCmQPOpUZtHFvyEkISINLJYbZGBavAmqqkZEy4aDtKuVqCVLDhqPgANKpZpYNT0 hbJdbV5IWS0ja7YdIA5Lg7OgnsS4eoXsLHb4Gqd6YegKTrDhNR1V Procedure Social History No Information Vital Signs ID Date Data Source [facility] Name Value Range Interpretation Code Description Data Source(s) Systolic blood pressure 142 mm[Hg] 142 mm[Hg[facility] Diastolic blood pressure 88 mm[Hg] 88 mm[Hg] [facility] ([facility]) Heart rate 77 /min 77 /min [facility] ([facility]) Body temperature 98.6 [degF] 98.6 [degF] [facility] ([facility]) Respiratory rate 18 /min 18 /min [facility] ( [facility]) Oxygen saturation in Arterial blood by Pulse oximetry 97 % 97 % [facility] ([facility]) Body weight 187.00 [lb_av] 187.00 [lb_av] [facility] ([facility]) Body weight 84.823 kg 84.823 kg [facility] ([facility]) Body height 67 [in_i] 67 [in_i] [facility] ([facility]) 5'7" Body mass index (BMI) [Ratio] 29.3 kg/m2 29.3 k g/m2 [facility] ([facility]) Body surface area Derived from formula 1.97 m2 1.97 m2 [facility] ([facility]) Body height 67 [in_i] 67 [in_i] [facility] ([facility]) 5'7" Systolic blood pressure 160 mm[Hg] 160 mm[Hg] [facility] ([facility]) Diastolic blood pressure 103 mm[Hg] 103 mm[Hg] [facility] ([facility]) Heart rate 56 /min 56 /min [facility]) Oxygen saturation in Arterial blood by Pulse oximetry 98 % 98 % [facility] ([facility]) Body weight 176.00 [lb_av] 176.00 [lb_av] [facility] ([facility]) Body weight 79.834 kg 79.834 kg [facility]) Body mass index (BMI) [Ratio] 27.6 kg/m2 27.6 k g/m2 [facility] ([facility]) Body surface area Derived from formula 1.92 m2 1.92 m2 [facility] ([facility])
[2021-07-28] MEDS ORDERED: FURO40TA2 PO (11:19)
[2021-07-28] MEDS ORDERED: VEML25TA PO (11:19)
[2021-07-28 13:04] LABS: BASO % 0.4 % (0.0-1.0); EOS % 1.3 % (0.0-3.0); HEMATOCRIT 38.9 % (42.0-52.0); LYMPH # 1.4 10^3/uL (1.5-5.0); LYMPH % 62.2 % (24.0-44.0); MEAN CORPUSCULAR HEMOGLOBIN 30.7 pg (27.0-33.0); MEAN CORPUSCULAR HGB CONC 33.4 g/dl (32.0-36.5); MEAN CORPUSCULAR VOLUME 91.7 fl (80.0-96.0); MONO # 0.2 10^3/uL (0.0-0.8); MONO % 6.7 % (2.0-8.0); NEUTROPHILS % 29.4 % (36.0-66.0); RED BLOOD COUNT 4.24 10^6/uL (4.30-6.10); WHITE BLOOD COUNT 2.3 10^3/uL (4.0-10.0)
[2021-07-28 13:35] LABS: ALBUMIN 2.2 GM/DL (3.2-5.2); ALT/SGPT 51 U/L (12-78); BILIRUBIN,DIRECT 1.6 MG/DL (0.0-0.2); BILIRUBIN,TOTAL 2.4 MG/DL (0.2-1.0); LIPASE 200 U/L (73-393); TOTAL PROTEIN 7.9 GM/DL (6.4-8.2)
[2021-07-28 13:40] LABS: NEUTROPHILS # 0.7 10^3/uL (1.5-8.5); PLATELET COUNT, AUTOMATED 59 10^3/uL (150-450)
[2021-07-28 13:57] LABS: BLOOD UREA NITROGEN 7 MG/DL (7-18); CARBON DIOXIDE LEVEL 30 MEQ/L (21-32); CHLORIDE LEVEL 109 MEQ/L (98-107); CREATININE FOR GFR 1.11 MG/DL (0.70-1.30); GLOMERULAR FILTRATION RATE > 60.0 (>60); GLUCOSE, FASTING 100 MG/DL (70-100); POTASSIUM SERUM 4.1 MEQ/L (3.5-5.1); SODIUM LEVEL 141 MEQ/L (136-145)
--- OUTSIDE RECORDS SUMMARY | 2021-07-28 14:13 | CCD ---
Author Author [facility] Organization [facility] Address Unknown Phone Unavailable Care Team Providers Care Motor Vehicle Examiner Name Role Phone Sondra GUTIERREZ MD Unavailable [...] DANNIE MD Unavailable Unavailable OBEN, T DANNIE Unavailable [...] T DANNIE MD Unavailable Unavailable OBEN, T ADNNIE MD Unavailable Unavailable OBEN, T DANNIE MD Unavailable Unavailable OBEN, T DANNIE MD Unavailable Unavailable Taisha Dutta MD (Jack) Unavailable Unavailable Taisha Dutta MD (Jack) Unavailable [...] (Augusto) MD Unavailable Unavailable Tin, Taisha Jean (Augutso) MD Unavailable Unavailable Tin, Taisha Jean (Augusto) [...] Jean (Augusto) MD Unavailable Unavailable Tin, Taisha Jena (Augusto) MD Unavailable Unavailable Tin, Taisha Jean [...] is protected by Article 27-F of the [facility] Public Health law. If you continue you may have access to information: Regarding HIV / AIDS; Provided by facilities licensed or operated by the [facility] Office of Mental Health; or Provided by the [facility] Office for People With Developmental Disabilities. If such information is present, then the following [facility] mandated warning applies: This information has been [...] law may result in a fine or prison sentence or both. A general authorization for the release of medical or other information is NOT sufficient authorization for further disc losure. Encounters Encounter Providers Location Date Indications Data Source(s ) Outpatient Attender: JARAD GUTIERREZ MD Family Practice 07/16/2021 0 2:30:00 PM EDT [facility] ([facility]) Outpatient Attender: JARAD GUTIERREZ MD 2020 02:22:00 PM EDT - 07/16/2021 02:22:[address] [facility] Outpatient Attender: DANNIE VELA MD 06/10/20 11:03:00 AM EDT - 06/10/2021 11:03:[address] [facility] Outpatient Attender: DANNIE VELA MD Family Practice 06/10/2021 11:00:0 0 AM EDT [facility] ([facility]) Attender: Taisha Dutta MD (Jack) 08/01/2020 08: [...] de anda Policy De Anda Plan Information U [id number] Self [id number] Human [id number] 0 [id number] [facility] ACTIVE DUTY [id number] SP [id number] [facility] [employer] [place] [id number] 18 [id number] ACTIVE DUTY [id number] SP [id number] [facility] Problems, Conditions, and Diagnoses Code Display Name Description Problem Type Effective Dates Data Source(s) N432 Other hydrocele Other hydrocele Diagnosis 06/10/2021 11:0 3:[address] [facility] Surgeries/Procedures Procedure Description Date Indications Data Source(s) OFFICE OUTPATIENT NEW 30 MINUTES 07/16/2021 12:00:00 A M EDT [facility] ([facility]) OFFICE OUTPATIENT NEW 45 MINUTES 06/10/2021 12:00:00 A M EDT [facility] ([facility]) OFFICE OUTPATIENT NEW 20 MINUTES 06/10/2021 12:00:00 A M EDT [facility] ([facility]) Results ID Date Data Source [id number] 06/10/2021 03:48:00 PM EDT [facility] ([facility]) Name Value Range Interpretation Code Description Data Francine rce(s) Supporting Document(s) Appearance of Urine Laboratory test result [facility] ([facility]) Color of Urine Laboratory test result [facility] ([facility]) Spec Rolla 1.005 1.001-1.030 [facility] ([facility]) Leukocytes Laboratory test result [facility] ([facility]) Nitrate [Presence] in Urine Laboratory test result [facility] ([facility]) pH of Urine by Test strip 5 5-9 [facility] ([facility]) Protein [Presence] in Urine by Test strip Laboratory test result [facility] ([facility]) Inhouse Glucose Laboratory test result [facility] ([facility]) Urobilinogen Laboratory test result [facility] ([facility]) Bilirubin.total [Presence] in Urine by Test strip Laboratory test res ult [facility] ([facility]) Ketones [Presence] in Urine by Test strip Laboratory test result [facility] ([facility]) Blood type and Indirect antibody screen panel - Blood Laboratory test result [facility] ([facility]) ID Date Data Source [id number] 07/31/2020 01:00:00 PM EDT [facility] Name Value Range Interpretation Code Description Data Francine rce(s) Supporting Document(s) Follow Up [facility] YLWBOc4iPmWXJwQyQPEqQvxIIAgkPDbcURSiN6Q2MYipAp7QKTiunsBzLNMpSr7+JQFnJR0kti6yAXJr gMy [file] family medicine physician assistant+[id number]//beGSofxX/0yO+AOWbzkjAvJOZgmV4QECHZmDPqmDuQixe2MLJPa0jVBIigoWt1h3/u9 [file] ywGJrUFRTlf/wNrFtqyVRipMTFUGTKnKpHxmLbLHHH BIyjMAEX7me7KpNPxz7zaCuAmaT3lwmSijHvbBKPACJC94tPsBno2k+3pkRXS5A21Pe2dOuQnccvPEgu Z3XR7Z4qU1go7UV6Bu+lAbKuHD+gGgPvCqM2T//5jAVS0y48UlO119VdY95T+fVr7GUgC/w5D4Uz2LbN k19TsX4WuFtV+Cuabx4GAuuNAZ/DpUVdKnogYxkuI0 QdIZ9rkXubUJFkXT2kXBwznLLBo6heam+LRNRuPlsAXllj/iVDCtc43norJACzr31fT9I0lO3mis0+b5 bAX+nOb+63ESFc7kwwi4IUFgM1TKIhFDbo5vbxp0nBByDvqdhHRGN7iKF053wtMQxoAZtYL7d0+3Sm/o 6tyv6NTQGvAD68nQabO4361HKw5+CaU9Yppf+e7V6h gIjf8dgUtMJIBb4+K/Rehabilitation Services Counselor/N8pRC9SetQJ5Yng566gWF0S1O0eZ1QCi8J9YoZf/paGjtS992OWxuQ0q+a W54ePXt3hSGgFYyitDOpGUsgQKId8UGtxtZtfOiKPgH7y+suiDCvvq+ItpA4gzBnm3Zz16G19nNEu/kK 07hfzQ+Epw+gYyF2BszLaE7YX0cgC/48GEk9Xrsg88 P7+HzLfuCh7PE9CdPiUkKI13lGH7qSKEayJHikX0b2dXZSgL+D7J0iGTo6L0NzMBue8zlnpoP2W0+asF +VakdUVxgHrYp1taI24i04bHn2Fp9eWRmY83858Jyfdt1+lYhS1Z8N6vVEb0Og4T2TBMeaJKSl4SLgyG 505QyYET9Eb5o8i9J4G13G0U5g5AGDxmWlc7hvad36 [file] svp research & ebusiness operations+4YK8mln/dt+/KrSemLax/DxTrp8uMBbNbIOKUZn [file] f+rIWPfmevMYQy9OP16tQ8FkRkZ1Xzu2IzwGO54qcwJ8gL0JW2Pl7pcPv296z61st+statistical clerk advertising/92qJt+Wm+t [file] IOCVzf218aa6EeZ1thwfzeAX/TV/J6foYDuzBxvXfR/data power consultant/rw5jZ2PB6kEvTeTuzDPiKBBUZ77eQqglIY [file] iP++Iván/+HOWqOqjm+WjXXXFNqLOlfmdKj+KTiMpZpTybAgcGCzLai8D6EOmaerPYK5pwWzXaFvVelaY FeclXy8TZw0ku8Mzhxf1DPvrdjKks4la4hf4ag97KbvRr917Y0DhQHrT0A/AeAneNH+SS7bDwCFaQo9g W4VEemBEvS6XqLBD1Ji33DTHs0Ly/VZ6BSOhvEov1O C1DU1R6zUmCd+rEFjLIaXEGvJ3kChfp5fXNDrLbwa/4Mxo4Nkge43qGnVJNli/Ds85mc2Wmy0mghGRLN 44qLcdh2BR0CHHUtN0Rl0F3DO3SOgtnHOcV8bneJ2XwOIhOUy6O32L3gghOcd6t+/Pizano/6IeyGViJujkf [file] FdJ3BZD0hGOoVo2SAYS9Gge0DNgvOLKWJz== ID Date Data Source [id number] 07/31/2020 12:00:00 AM EDT [facility] Name Value Range Interpretation Code Description Data Francine rce(s) Supporting Document(s) SARS coronavirus 2 RNA panel N [facility] This lab was ordered by [facility] ([facility] [place]) and reported by [facility]. ID Date Data Source [id number] 06/26/2020 01:15:00 PM EDT [facility] Name Value Range Interpretation Code Description Data Francine rce(s) Supporting Document(s) First [facility] UNWACo8oMzIQXhNeTSLeAxqZRPhjYZphGSNnT0V4PCqnCv8GATvufjGvNNKgQe1+ZNIqTL7kvf9eXKJx gMy [file] YHt/L/PlmmHKvITX76XGtR/ZPrd+HwmSJGS+8PiZ9vNykeGYtt8JKncM3KlZAzAl4bIOehOUYb1L/José [file] numerical analysis group manager+MtfBn6OGeFcxrKwwHbWZmLQV6VRGNpeE1FJhxi [file] CÉSAR+8hUumY/++E5yKsFyhBUwwUQKq8rawamPIP1xgf [file] 5zTojme+KtRsym86ky0kJ3UaXllWWOFatBUX8qs4k6o0cucZ7rT69CHOlbrH5dPv+l+transformation coach/gy7ODvczx c42Zep/tNf/+hX2iwqwSDGyod58IFX6lpC7PSIg5Asjn439d/zcqULyCP/rw95/rEl+rYnU+J8b/Ih3z K6gea0rtm4g4n/eWzRD+0SdHpl549ab3gaNy8UAzFw ubDhIjy79+09BCkhBzWs719HS15PKI08Kpq3k8nbkjoWQoJN0SCwo5A/a/X7p5hm/gpojy9TA8Ox4yn8 MzTRTwtpSbTb2XYutHFOts6rQBDfE8//t1LQ/18PdKDQHWCQf/NIbEw4B2kIDuUbBkSmYtfXbUmNGb6e 9r2FMQHSHeTWUEexdopN158nqJVQWhznnPQ6KCAOjX [file] wee4lnGTF0GlubLzfQb+lCcIuuV30w1+I4DL65h/Simón/Nk+vGCcLqwMr+6ZIrqRqk1p/WYQMOOhTRsZF wvq9EXhPZK5bhSI4C+byIKZOBWXbkm3mS1dbHH6wxj 2CGs4GtyAwm8G/+JPhlTbIx685ctQx/OnKIWAxLJUFhMhxJ4KDxVti3q5O9B+hMZDhG90ZMR2UMKIIMw DO00Tb5YPQ3S2zplEGKl1l9jzWeYzUYa3KT39UssRKSqxYd+Vw+dADn12mFE1xqtzGdu8NTH7r9PKLvi ITTv0k6zqtQgQISQdwlFoSkZAHPbIvwk5TwKyWqXR3 lrisxbYrH4l0+qf9nwRliRUtNRqfw4Q84TvZWkqaiiolIe2wQPeBsVSowNwBMIX8C3gcX/ZoVQYIsHAF 1ldcAqx5iPtyGY+ymVRLfGt5JqZJhGvMObOKgNKWuo1rD38xaJ6Q6fiKygtyNmLchyk6SUU1B3VQQlyU sfbEqaelJbWD0D5UINgR+I2CefTU/sznM6nledVWZu KovST7dRcMrUKaCH+7V3mbttjWbzN3bjnEr0EKRfEckq/Nicho/xabbJFRUhwyszvM5/zl/mGyxzWpaHfD [file] svp research & ebusiness operations+GPFJ/zusuCtqzoXjKV/WNUqw3k3e4BUhHIDH4/uqyv984xRMQYKSZN7PhHprN+oDqSA1gD36f4H+e [file] +4tHoeELPYWM+R6dlv8mXtb/VMEM1N+iobKazjWc/TsGCHlOrfuWBJ28joun724wHRNMQSv2TgCv+research and development tester [file] kRl7urMFlo00lNLS8wFJQx5E7KzQX+1VXfdD8spfH6ibVd5zmE9XGKwKx9QZPCNX1YTmMJ1Ps/rG+Nguyễn [file] 2V49+fZ5QDKYAA3rC9PErXZn4CVNXaDgv6ofizKs6L+nN/7QQrxJqxb8m1SYm3R73uCqadCTiEi3D/Salgado FZ0PZRjlTEcMU9l9tVwqc9kd6in90wy9GJxsSQ0yTO Ik9wT1+jZwHsdrD2Z+LeHECkAe7G2DsOVO/xUnooWUPznqpLut7oITaFHQ28Y3c7jugcJI4zi0hqtTiQ o6jyS3HD5DDx8CytTuBliqysXG2ZkFDyy3BSnUUgZ/YBfdwH0oY374YF5wyGfc1jm4lZKTG9kjv82za9 2w3KzMggWyT/L7/xayntHfWPx4UdYG8cu/xZqA5Ofq aHFchVD48nOXE0KFLBD+5yY/qmcVUxci2y8SVYEnVvCApBLAQSIsZUZecZhulIXC3y1KzGOEaBTwaS5Z dcv+JV7mzOwVdcPTjudwjN9gcYv9pSxwJv+M959cwjCCaefrX8p1/Nad9Nhf6s0ERplwE7paX9pv/cJP LGhg06on8u3CBh6NtRwLI4zsEGv195BskyK9zOT6Mq YjwQ7lmwoF+Ho3uY/E6UCJM5TByqyxLcaPIfOY9ZAY4qw9NhRBAkEMTjv9KhWPd5N1mlgyi6nZYvVA5+ w4DjWJGsTAjwWlMmGvBfMNXsAixcZCOgYUUpjAxbNI6aRtKWwqyHMMjcfbWgqRNzWO0VCD6nz2PgMLNn OCFcm0ZfUDj0V0VwyIBfbaZpYvulwSIMDLAjQPNpTJ JgG2ChZYDuE7xCQYz7L2L2WII9WNEVLCHtHhYLOylAUxIZQQARCiJbRyD9EUZ+MYwuNTIYWyV1HAZ6Gr C8RyGHONW8WzN6EUJYCRIMSrEpWU5cS0Jas8ZrSALxBOKzNW9rssYhVKRrTu1IhJhjTQO5F8J0yTXsA9 kPAHUxLoViDAG1JBXhCn9qgJYqIT2DDytcH9DsUSTv YASSXGDSAkx+GSSRDTEjXLAoJAlZGovWsVCPVAPDcWKJppMnbvjJOf6iQvHeAyUQWMymTzSZYhCyTQF7 wiCwxZ8BBC4ao1VgXD5Eo2WmmvW5oqCvDWr5Nsp6TzzQDyFhDM5I Procedure Social History No Information Vital Signs ID Date Data Source UNK Name Value Range Interpretation Code Description Data Source(s) [facility]stolic blood [facility] 142 mm[facility]Hg] 142 [facility] Diastolic blood pressure 88 mm[Hg] 88 mm[Hg] [facility] ([facility]) Heart rate 77 /min 77 /min [facility] ([facility]) Body temperature 98.6 [degF] 98.6 [degF] [facility] ([facility]) Respiratory rate 18 /min 18 /min [facility] ( [facility]) Oxygen saturation in Arterial blood by Pulse oximetry 97 % 97 % [facility] ([facility]) Body weight 187.00 [lb_av] 187.00 [lb_av] [facility] ([facility]) Body weight 84.823 kg 84.823 kg [facility] ([facility]) Body height 67 [in_i] 67 [in_i] [facility] ([facility]) 5'7" Body mass index (BMI) [Ratio] 29.3 kg/m2 29.3 k g/m2 [facility] ([facility]) Body surface area Derived from formula 1.[address] [facility] ([facility]) Body height 67 [in_i] 67 [in_i] [facility] ([facility]) 5'7" Systolic blood pressure 160 mm[Hg] 160 mm[Hg] [facility] ([facility]) Diastolic blood pressure 103 mm[Hg] 103 mm[Hg] [facility] ([facility]) Heart rate 56 /min 56 /min [facility] Oxygen saturation in Arterial blood by Pulse oximetry 98 % 98 % [facility] ([facility]) Body weight 176.00 [lb_av] 176.00 [lb_av] [facility] ([facility]) Body weight 79.834 kg 79.834 [facility] Body mass index (BMI) [Ratio] 27.6 kg/m2 27.6 k g/m2 [facility] ([facility]) Body surface area Derived from formula 1.[address] [facility] ([facility])
--- NOTE | 2021-07-28 14:39 | REP ---
INDICATION: abdominal distention COMPARISON: None TECHNIQUE: Axial noncontrast images from the lung bases to the pubic symphysis with coronal and sagittal reformations. This CT examination was performed using the following dose reduction techniques: Automated exposure control, adjustment of mA and/or kv according to the patient's size, and use of iterative reconstruction technique. FINDINGS: Lung bases are clear. Visualized heart and pericardium normal. Massive ascites fills the abdomen and pelvis along with evidence for cirrhosis. Spleen, pancreas, bilateral adrenal glands and kidneys are grossly normal by noncontrast evaluation. Cholelithiasis suggested without definite acute cholecystitis. Evaluation of the enteric system is severely limited by surrounding ascites. There is no definite evidence for bowel obstruction or obvious acute inflammatory process. Extensive colonic diverticulosis noted. Pelvis demonstrates normal bladder and age-appropriate prostate/seminal vesicles. Large left inguinal hernia causing large left hydrocele Osseous structures appear intact. Abdominal aorta is without aneurysm.. IMPRESSION: Severe ascites and evidence for cirrhosis. Further evaluation is limited. Evidence for cholelithiasis and diverticulosis. <Electronically signed by Juan Luis Heller > 07/28/21 [id number]
[2021-07-28 14:48] LABS: HEPATITIS B CORE ANTIBODY IGM NEGATIVE (NEGATIVE); HEPATITIS C VIRUS ABY INDEX 0.1 INDEX (<0.8)
[2021-07-28 15:00] LABS: HEPATITIS B SURFACE ANTIGEN POSITIVE (NEGATIVE)
[2021-07-28] MEDS ORDERED: LISI20TA20 PO (15:55)
--- OUTSIDE RECORDS SUMMARY | 2021-07-28 15:59 | CCD ---
Author Author [facility] Organization [facility] Address Unknown Phone Unavailable Care Team Providers Care Bus Greaser Name Role Phone Sondra GUTIERREZ MD Unavailable [...] (Augusto) MD Unavailable Unavailable Tin, Taisha Jean (Aguusto) MD Unavailable Unavailable Tin, Taisha Jean (Augusto) [...] Taisha Jean (Augusto) MD Unavailable Unavailable Tin, Atisha Jean (Augusto) MD Unavailable Unavailable Tin, Taisha [...] is protected by Article 27-F of the [facility] Public Health law. If you continue you may have access to information: Regarding HIV / AIDS; Provided by facilities licensed or operated by the [facility] Office of Mental Health; or Provided by the [facility] Office for People With Developmental Disabilities. If such information is present, then the following [facility] mandated warning applies: This information has [...] law may result in a fine or half-way sentence or both. A general authorization for the release of medical or other information is NOT sufficient authorization for further disc losure. Encounters Encounter Providers Location Date Indications Data Source(s ) Outpatient Attender: JARAD GUTIERREZ MD Family Practice 07/16/2021 0 2:30:00 PM EDT [facility] ([facility]) Outpatient Attender: JARAD GUTIERREZ MD 2020 02:22:00 PM EDT - 07/16/2021 02:22:00 PM EDT [facility] Outpatient Attender: DANNIE VELA MD 06/10/20 11:03:00 AM EDT - 06/10/2021 11:03:00 AM EDT [facility] Outpatient Attender: DANNIE VELA MD Family Practice 06/10/2021 11:00:0 0 AM EDT [facility] ([facility]) Attender: Taisha Dutta MD (Jack) 08/01/2020 [...] anda Policy De Anda Plan Information U [id number] Self [id number] Human [id number] 0 [id number] [facility] ACTIVE DUTY [id number] SP [id number] [facility] [place] [id number] 18 [id number] ACTIVE DUTY [id number] SP [id number] [facility] Problems, Conditions, and Diagnoses Code Display Name Description Problem Type Effective Dates Data Source(s) N432 Other hydrocele Other hydrocele Diagnosis 06/10/2021 11:0 3:00 AM EDT [facility] Surgeries/Procedures Procedure Description Date Indications Data Source(s) OFFICE OUTPATIENT NEW 30 MINUTES 07/16/2021 12:00:00 A M EDT [facility] ([facility]) OFFICE OUTPATIENT NEW 45 MINUTES 06/10/2021 12:00:00 A M EDT [facility] ([facility]) OFFICE OUTPATIENT NEW 20 MINUTES 06/10/2021 12:00:00 A M EDT [facility] ([facility]) Results ID Date Data Source [id number] 06/10/2021 03:48:00 PM EDT [facility] ([facility]) Name Value Range Interpretation Code Description Data Francine rce(s) Supporting Document(s) Appearance of Urine Laboratory test result [facility] ([facility]) Color of Urine Laboratory test result [facility] ([facility]) Spec Robbins 1.005 1.001-1.030 [facility] ([facility]) Leukocytes Laboratory test result [facility] ([facility]) Nitrate [Presence] in Urine Laboratory test result [facility] ([facility]) pH of Urine by Test strip 5 5-9 [facility] NT ([facility]) Protein [Presence] in Urine by Test strip Laboratory test result [facility] ([facility]) Inhouse Glucose Laboratory test result [facility] ([facility]) Urobilinogen Laboratory test result [facility] ([facility]) Bilirubin.total [Presence] in Urine by Test strip Laboratory test res ult [facility] ([facility]) Ketones [Presence] in Urine by Test strip Laboratory test result [facility] ([facility]) Blood type and Indirect antibody screen panel - Blood Laboratory test result [facility] ([facility]) ID Date Data Source [id number] 07/31/2020 01:00:00 PM EDT [facility] Name Value Range Interpretation Code Description Data Francine rce(s) Supporting Document(s) Follow Up [facility] KISMUi7lVwFNRwRhLHZpLxhXSQteVPfpRGJyO5Z2SGzvNj0DNKkuekLdIHHpTq7+RIKlFR2ssy4wJYVy gMy [file] private secretary+Zfdr3T09//beGSofxX/0yO+GSAzshrDqZLFefT4RNZVAsWSluJfFtcu5WCMJv5yBLQsdjXy6s0/u9 [file] ywGJrUFRTlf/wNrFtqyVRipMTFUGTKnKpHxmLbLHHH XYzgFPEL4oe2IdJKoi1aoBrJxmF9ittMjeDozGJNLJWN94gOkVdz0a+8rfWBZ0G22Yn5hKpMfozhGMdm T1NR4A2jG3eu4FO0Vy+lAbKuHD+iXmHgRdS2X//9zELC9f11MpV868TlH35K+aUy8IUpY/d4B2Fv4YvZ u81NlE2TmIkA+Iojck5ZPagDSL/DpUVdKnogYxkuI0 AkVG5djYglPFBqBF5lUZpojWRNu4ckfn+LRNRuPlsAXllj/nPZTph17wykMTXuh15wT4H9oT0pea7+b5 bAX+nOb+84ZMHb6iwis3BAXjF6OOAtUXef2oynj6iFHdCorfxUBNP3qAQ238cpIDzaEZeRX7j6+3Sm/o 5zvi6QNSDkOH34aTnzT6501AGh3+FyU7Pocr+e7V6h eYoc7twEfMEOIr5+K/Imaging Administrator/Y5bQT3YgxXF7Bfj547wLE9E7R5nJ0KRa1K0SwRq/nmQsgT619KLkxQ0l+a Z49dXMt5wLAfCGafmWMdPDieGHVk4HPjqmKzaZkTQlZ6h+suiDCvvq+NveU9gvGmx6Bd25Z56hUFt/kK 07hfzQ+Epw+eVxH3YbxDhY1BY5tcR/69HMy3Yqxh91 P7+QvJrkJr7UG5BlDeKxYY79kQS1qEIJwgNKeoI3a8jPMKgY+A2S6oTEu3A2DqCDhn9cvhikE1G7+asF +QavmUUoxEsDt3jrR37b65iZy1Kj7xBUbI42567Segmn9+jRbR7L5R0bHLu2Jq6H5UUKwoGMSt5KZnbR 567YhZPO9Sp3o5n1P7E29X9X1e2FXAmtApo8jxno65 [file] 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+0RD8vzy/dt+/KrSemLax/VzSdw2eKCfXsMSVKZf [file] f+uJTRzkggMLQi5OM41eQ3QhGkR3Nho6QekGY68tvcX8yH6BL0Dy8fjCi504z12oo+athletic training internship/92qJt+Wm+t [file] iP++Iván/+HOWqOqjm+WjXXXFNqLOlfmdKj+MVrUxKmNrkZnmLFdCgd1J0GEisraMQU9pmEmUfMgQdrmQ SdqwPj3BCi5iz9Dfyst4NFrqdnJoc8xs8fl7im27AvfMs817I1SeKEkZ8L/AeAneNH+RE6zNcOSmCy1d C2USmkRMjL2VpZCY9Gs13RXOs7Si/XG9ROXimNcp4I C4DO3I3zMqOl+fTIlMFfLCXhC6uKqzt4vHZHsNhvm/8Bpf8Kjef16jHwORVgs/Ek74tq0Ggy5kmbAJEB 08eEqhl9AE2MOEHzX4Zp5D2CZ2DLbxzQHxV4lftB5VgFUhINe1D97H2lpdQlf2h+/Pizano/6IeyGViJujkf [file] QoB7IAZ0aYPnFq6TZVM9Luj1DFglAYPROl== ID Date Data Source [id number] 07/31/2020 12:00:00 AM EDT [facility] Name Value Range Interpretation Code Description Data Francine rce(s) Supporting Document(s) SARS coronavirus 2 RNA panel N [facility] This lab was ordered by [facility]) and reported by [facility]. ID Date Data Source [id number] 06/26/2020 01:15:00 PM EDT [facility] Name Value Range Interpretation Code Description Data Francine rce(s) Supporting Document(s) First Visit [facility] ZXEGWw3eQrHJKaLqJXFmCnaBFVfxJPjfFWHrM4N8HRklKs3GQDkulzJrABVhPu1+JWSfJX1gsf8fJBAw gMy [file] YHt/L/FocuBGpKLX39PMpN/ZPrd+HwmSJGS+6QhD0gYxcqFQyn7LTwuR7WmCWaOv9qNFmuNWAq7U/José [file] sports trainer+MmyRe7RVfLxktExcKfSEzFNY2HPZGlqK9CPqdi [file] CÉSAR+8hUumY/++X3sYmEphTMppPDAd4fkkxlOEP8elo [file] 5zTojme+ZoXqyy68kp2pV9AgQjqFMAImeVPI9mf4v6f0vekH0kQ55NNTuciO5eQi+l+sprinkling system installer/iz9MEkiqi c42Zep/tNf/+yN0qwiuRVWafk91PXA3lnN7VLDw4Mgua532q/zcqULyCP/rw95/rEl+rYnU+J8b/Ih3z B8clu3wux5g8v/eWzRD+6DxNxm617wz7ydOd3STwZc pbOqGyf61+34SRhrPtCq122SB34HKY44Tfn2h3bmzxcPKmLZ8QLpp2A/a/X7p5hm/qblay3CK3Jp3is7 PnHSHhcxHzVo2AVceJPUvr5wALZzV0//t1LQ/18PdKDQHWCQf/ZXtSm9T4sCPmSzDlYmKahArHoDHt7p 3f5ODKAGSdFUJLbdfbcP214syHIQPodhyTH5FBPClP [file] lse8pmLQO0EsxjLasPt+jOqOpuO31h1+E6LH34k/Simón/Nk+vGCcLqwMr+7GZbtXkt4t/WYQMOOhTRsZF dqy0CBhKZO7dnWU6K+hnGJERODUnny4xO7ddWE5gcv 3VJd9LokSai1P/+DUpkKuTl471vrSm/ZrLVMJyOWLWhUlcT5DOaMdp1a4D0D+fPLYbO80TTC1BKKISEb QG41Fk5UBS8U4lyhLQYq3e6aoHcOzNNy4KF36UjxCNGppHn+Vw+uJYz52lEH3ntogGtj9WQO9r6PIGgs CCQy1g9uceRaDDFJaltPrLlBBTLhTbcv9OzJgZrHS2 gvpowmSnI2d7+oy3cxKduGAvZIxgt9H26FhRXplnsvojVn7aIJdKiOOnqGtERYQ3J9hxN/ZoVQYIsHAF 9twfOzi6aLbaQZ+qkPRLiFp6AtEImEhSSuTCoWQSou1nX70caD8Z6ziIntdqPaQitos0NAL5G1TWEwgE osjDncfsAkXJ8W0JAOuX+R9RntDR/opnA2bqmiIPFf PudRG6tDlTxMYcNB+7S2zpqlhFeuB0lzvPf8VLWzCeus/Nicho/xabbJFRUhwyszvM5/zl/mGyxzWpaHfD [file] 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+GPFJ/zusuCtqzoXjKV/ZTZoi3e2d6RPhKXSK8/vbhq103kHAQTVGZO7MtFjcU+lHyGN2bM27z4L+e [file] +4tHoeELPYWM+E5zqk5oOuv/VMEM1N+iobKazjWc/AeUDVwCtzdPMP76wucw810oKTSFKMv1LwLc+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 [file] pUf6lcFMtc53kVIW1eCRIh8V0JhSV+4ZKhtH8mwoZ4zrOb4sjX2UUHxQe7LUXNDZ7SPoXQ7Yb/rG+Nguyễn [file] 2V49+nV8MUOFKO9pK6MNvZLk2GUKGaHvo5ymacHl4Q+nN/6PLbvRbqe2p9XLa9A63oFataQCzDv0W/Salgado TA5CQFpbMXfGP1i1xUvre9zl9vy32st9JTxaOG9bJF Ik9wT1+vPoPsipJ9W+LuHZYsFp0F1VkUAI/nRgfjYIBawmeHwk0bYVyHKM85V6w9nbptPY7lm5mhlLaO b9vxX4AX0KRl7NiwYbTbbdlsOJ2NkTImu9OGyBKeR/STmbfZ8oE593BL6bfDff3qs2uWPCV7evk85cf0 7i5SbAerYtY/L7/iajjvJiIDa0McTI9jt/xTgY8Vfm jVNvsHM84fXDK3ZCXYN+5yY/fmdCHlwi5q7NRVSpGbAWoIEAEBNbVROsfZufzGZQ8a2KbSPGaAJjnB2E dcv+WQ7gpKdQdhILlkypmN9abAt7mQjrSe+K223tsqTOcahaN3h3/Jpw7Lur3a6XUzbkT4chL6dy/cJP KLfh21by9v4DBg4KmPoOF6bxXGk645SkmhL6wXU3Fb OikF7vtfwJ+Ho3uY/W2GRDL4DEfhkpThrXCeVX1EIN0cy5OwIBHjNIWze3WkXQm8G2lnfgc1bIFwXP9+ y2BwATYgIJzjQdTzOiFqVNAwQkhmQACdAZDjvGabRA4xUsURgetKNZuhuoAnjUUmJF6DHC1jx0WeKXRq KDZft6ZmYDe0K5MldSUisqBpYxuwxJKHYTWoBEYfWT XmQ6XtLSOwU7jQLMk7C5L5ZOG6SZQBPGMsUyEPPwoTFuQWSDQERtCyNcP1VYX+VWuzTFJJAsW5RGW7Ed J0LzUQWPD5QaN0OZVWHEMDPcPjVH7iT4Fwd4XaSSTwGBIeIA4glmLeCVOmDi1PqMltMLF2B8W6vCLoM8 lBSGPlHbVhLCK9XGVvXp9gdIGcBB3KMazhJ1QeVPSf YASSXGDSAkx+KVYOOFLrPGXtXMxJQnbIsFNDLHWDcIRQshEnhleIPf1tIvPgBbBEWJouOzULDqPfCTE9 taRnbI9IDS2il0GhBP7Uh5ZjgoU8tpSfLVl7Apw7BnyHUlKqWR1C Procedure Social History No Information Vital Signs ID Date Data Source UNK Name Value Range Interpretation Code Description Data Source(s) [facility]stolic blood [facility] 142 mm[facility]Hg[facility] Diastolic blood pressure 88 mm[Hg] 88 mm[Hg] [facility] ([facility]) Heart rate 77 /min 77 /min [facility] ([facility]) Body temperature 98.6 [degF] 98.6 [degF] [facility] ([facility]) Respiratory rate 18 /min 18 /min [facility] ( [facility]) Oxygen saturation in Arterial blood by Pulse oximetry 97 % 97 % [facility] ([facility]) Body weight 187.00 [lb_av] 187.00 [lb_av] [facility] ([facility]) Body weight 84.823 kg 84.823 kg [facility] ([facility]) Body height 67 [in_i] 67 [in_i] [facility] ([facility]) 5'7" Body mass index (BMI) [Ratio] 29.3 kg/m2 29.3 k g/m2 [facility] ([facility]) Body surface area Derived from formula 1.97 m2 1.[address] [facility] ([facility]) Body height 67 [in_i] 67 [in_i] [facility] ([facility]) 5'7" Systolic blood pressure 160 mm[Hg] 160 mm[Hg] [facility] ([facility]) Diastolic blood pressure 103 mm[Hg] 103 mm[Hg] [facility] ([facility]) Heart rate 56 /min 56 /min [facility] Oxygen saturation in Arterial blood by Pulse oximetry 98 % 98 % [facility] ([facility]) Body weight 176.00 [lb_av] 176.00 [lb_av] [facility] ([facility]) Body weight 79.834 kg 79.834 [facility] Body mass index (BMI) [Ratio] 27.6 kg/m2 27.6 k g/m2 [facility] ([facility]) Body surface area Derived from formula 1.92 m2 1.[address] [facility] ([facility])
[2021-07-28] MEDS ORDERED: HOME MED LIST COMPLETE! XX SCH (16:00)
[2021-07-28 16:32] LABS: INR 1.65
[2021-07-28 16:33] LABS: PARTIAL THROMBOPLASTIN TIME 36.3 SECONDS (25.9-37.0)
[2021-07-28 16:53] LABS: HEMATOCRIT 39.6 % (42.0-52.0); HEMOGLOBIN 13.3 g/dl (13.5-17.5); MEAN CORPUSCULAR HGB CONC 33.6 g/dl (32.0-36.5); MEAN CORPUSCULAR VOLUME 92.3 fl (80.0-96.0); PLATELET COUNT, AUTOMATED 57 10^3/uL (150-450); RED BLOOD COUNT 4.29 10^6/uL (4.30-6.10); WHITE BLOOD COUNT 2.1 10^3/uL (4.0-10.0)
--- NOTE | 2021-07-28 16:53 | HPEPDOC ---
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 The patient is a chronic hepatitis B patient followed by hepatology,Dr. Hogan, through [facility]. He is currently on tenofovir for hepatitis B infection. The patient states over the past one week he's noticed increased abdominal girth, increased fullness with nausea intermittently. He has vomited a handful of times, nonbloody of just bile. He denies chest pain, short of breath, diarrhea. The patient states his last alcoholic beverage was 1 year ago. He states he last saw his medical care evaluation specialist this summer and at that time he was stable. His abdominal distention is new since his evaluation with him. He was sent to the emergency room for further evaluation. In the emergency room vital signs were stable. H&H stable. The patient had pancytopenia; however, when compared with labs over the past 2 years this appears to be chronic. 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 INR 1.6, no signs of bleeding. The patient had obvious abdominal distention, tense, uncomfortable on palpation, positive fluid wave. A call was placed to his medical care evaluation specialist office but no callback was received. The patient is on tenofovir for Hepatitis B infection tx. ultimately the patient was admitted under medicine service for ascites secondary to liver cirrhosis. REVIEW OF SYSTEMS: CONSTITUTIONAL: Denies lack of energy, unexplained weight loss, loss of appetite, fever, night sweats EYES: Denies eye drainage, eye pain, visual changes, dry/irritated eye EARS, NOSE, MOUTH, THROAT: Denies difficulty hearing, ringing in ears, mouth sores, loose teeth, sore throat, facial numbness or pain NECK: Denies swollen glands CARDIOVASCULAR: Denies irregular heartbeat, racing heart, chest pains, swelling of feet or legs, pain in legs with walking RESPIRATORY: Denies shortness of breath, night sweats, wheezing, sputum production, oxygen at home, coughing up blood, cough lasting > 1 month GASTROINTESTINAL: Denies constipation, bloody stool, diarrhea, heartburn GENITOURINARY: Denies painful urination, bloody urine, frequent urination, urgency, leaking urine, impotence MUSCULOSKELETAL: Denies joint pain, muscle pain, leg swelling INTEGUMENTARY: Denies rash, itching, new skin lesion, change in existing skin lesion, hair loss or increase, breast changes. 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 SOCIAL HISTORY: Denies tobacco, drug use. Has a history of alcohol abuse, last drink was one year ago. 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 ALLERGIES: Please see below. HOME MEDICATIONS: Please see below. PHYSICAL EXAMINATION: VS: Stable, see below CONSTITUTIONAL: No acute distress, resting comfortably, AAO x 3 EYES: PERRLA, EOM intact HENT, MOUTH: Normocephalic, atraumatic, moist mucous membranes NECK: SUPPLE, no JVD, no lymphadenopathy, no carotid bruit CV: Regular rate and rhythm, S1S2 normal, no murmurs/rubs/gallops RESPIRATORY: Clear to auscultation bilaterally, no rales/rhonchi/wheezes GI: distended, tense abd, + fluid wave. BS positive in 4 quadrants, rebound or guarding, hepatomegaly. : Deferred MUSCULOSKELETAL: Normal ROM. No cyanosis, clubbing, swelling, joint deformity, extremity edema INTEGUMENTARY: Intact, no rashes, no lesions, no erythema NEUROLOGIC: Cranial Nerves II-XII are intact, no focal deficits PSYCHIATRIC: Mood and affect are normal LABORATORY DATA: Please see below IMAGING: CT abd/pelvis: Severe ascites and evidence for cirrhosis. Further evaluation is limited. Evidence for cholelithiasis and diverticulosis. 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 PLAN: Abdominal ascites secondary to liver cirrhosis 2/2 to chronic Hep B and hx of alcohol abuse -New over the past one week according to patient -MELD score 16, attempted to call medical care evaluation specialist and [place] -Admitted for diuresis, paracentesis scheduled for 07/29/2021 -Follow-up CMP daily Chronic Hep B -Followed by medical care evaluation specialist -On tenofovir, continue -Discussed with Dr. Enriquez Ethnic vs. familial neutropenia, pancytopenia -No s/s of bleeding -H/H stable, low WBC and PLTs similar to 2019 when patient saw hematology here -F/u CBC daily, recommend f/u as o/p -Peripheral smear previously normal, will order new one today -Consider heme consult if worsens Hx of alcohol abuse -States he has not drank in 1 yr -No s/s of withdrawl DVT px -SCDs, teds. No AC due to paracentesis and low PLTs DISPOSITION: Admitted as acute inpatient. Call placed to patient's medical care evaluation specialist, Dr. Etienne, [facility] with no call back. Will admit and hopefully discuss with specialist soon Vital Signs Vital Signs Date Time Temp Pulse Resp B/P (MAP) Pulse Ox O2 Delivery O2 Flow Rate FiO2 07/28/21 11:02 146/102 (117) 07/28/21 10:57 97.4 63 18 100 Room Air Laboratory Data Labs 24H Laboratory Tests 2 07/28/21 12:49: Immature Granulocyte % (Auto) 0.0, Neutrophils (%) (Auto) 29.4L, Lymphocytes (%) (Auto) 62.2H, Monocytes (%) (Auto) 6.7, Eosinophils (%) (Auto) 1.3, Basophils (%) (Auto) 0.4, Neutrophils # (Auto) 0.7L, Lymphocytes # (Auto) 1.4L, Monocytes # (Auto) 0.2, Eosinophils # (Auto) 0.0, Basophils # (Auto) 0.0, Nucleated Red Blood Cells % (auto) 0.0, Immature Platelet Fraction 9.8, Anion Gap 2L, Glomerular Filtration Rate > 60.0, Calcium Level 8.0L, Total Bilirubin 2.4H, Direct Bilirubin 1.6H, Aspartate Amino Transf (AST/SGOT) 74H, Alanine Aminotransferase (ALT/SGPT) 51, Alkaline Phosphatase 154H, Total Protein 7.9, Albumin 2.2L, Albumin/Globulin Ratio 0.4, Lipase 200, Hepatitis A IgM Antibody NEGATIVE, Hepatitis B Surface Antigen POSITIVEH, Hepatitis B Core IgM Antibody NEGATIVE, Hepatitis C Antibody Index 0.1 07/28/21 15:48: Prothrombin Time 20.0H, Prothromb Time International Ratio 1.65, Activated Partial Thromboplast Time 36.3 07/28/21 16:23: 07/28/21 16:24: CBC/BMP Laboratory Tests 07/28/21 12:49 Home Medications Scheduled Furosemide (Furosemide) 40 Mg Tablet, 40 MG PO DAILY Lisinopril/Hydrochlorothiazide (Lisinopril-Hctz 20-25 mg Tab) 1 Each Tablet, 1 TAB PO DAILY Tenofovir Alafenamide Fumarate (Vemlidy) 25 Mg Tablet, 25 MG PO DAILY Allergies Coded Allergies: No Known Allergies (Unverified , 03/29/19) A-FIB/CHADSVASC A-FIB History Current/History of A-Fib/PAF?: No Current PO Anticoag Therapy: No Age/Risk Factor Scoring CHADSVASC: CHADSVASC Response (Comments) Value Age Risk Factor Age < 65 years old 0 Gender Risk Factor Male 0 Hx of CHF No 0 Hx of HTN Yes 1 Hx of Stroke/TIA/or VTE No 0 Hx of Diabetes No 0 Hx of Vascular Disease No 0 Total 1 Treatment Treatment ordered: NONE Other anticoagulant ordered: low PLTs Jordyn Engel MD Jul 28, 2021 16:53
[2021-07-28 17:10] LABS: ALBUMIN 2.1 GM/DL (3.2-5.2); ALT/SGPT 48 U/L (12-78); BILIRUBIN,TOTAL 2.2 MG/DL (0.2-1.0); BLOOD UREA NITROGEN 7 MG/DL (7-18); CALCIUM LEVEL 7.8 MG/DL (8.5-10.1); CARBON DIOXIDE LEVEL 30 MEQ/L (21-32); CHLORIDE LEVEL 107 MEQ/L (98-107); CREATININE FOR GFR 1.08 MG/DL (0.70-1.30); GLOMERULAR FILTRATION RATE > 60.0 (>60); GLUCOSE, FASTING 101 MG/DL (70-100); POTASSIUM SERUM 3.8 MEQ/L (3.5-5.1); SODIUM LEVEL 138 MEQ/L (136-145); TOTAL PROTEIN 7.5 GM/DL (6.4-8.2)
[2021-07-28 17:16] LABS: INR 1.6; PROTHROMBIN TIME 19.4 SECONDS (12.7-14.5)
[2021-07-28] MEDS ORDERED: FUROSEMIDE 100MG/10ML VIAL (J1940) IV SCH (17:25)
--- NOTE | 2021-07-28 18:13 | DS.PDOC ---
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 The patient is a chronic hepatitis B patient followed by hepatology,Dr. Hogan, through [facility]. He is currently on tenofovir for hepatitis B infection. The patient states over the past one week he's noticed increased abdominal girth, increased fullness with nausea intermittently. He has vomited a handful of times, nonbloody of just bile. He denies chest pain, short of breath, diarrhea. The patient states his last alcoholic beverage was 1 year ago. He states he last saw his professional services manager this summer and at that time he was stable. His abdominal distention is new since his evaluation with him. He was sent to the emergency room for further evaluation. In the emergency room vital signs were stable. H&H stable. The patient had pancytopenia; however, when compared with labs over the past 2 years this appears to be chronic. 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 INR 1.6, no signs of bleeding. The patient had obvious abdominal distention, tense, uncomfortable on palpation, positive fluid wave. A call was placed to his professional services manager office but no callback was received. The patient is on tenofovir fo r Hepatitis B infection tx. ultimately the patient was admitted under medicine service for ascites secondary to liver cirrhosis. HOSPITAL COURSE: I spoke with Dr. Aguila about this patient, although he could not be officially consulted. It was advised to get another liver ultrasound along with diagnostic paracentesis plus start on Lasix and spironolactone. I called at 6 PM to give the patient and update and I was notified that the patient went to leave AGAINST MEDICAL ADVICE. Talked to the patient at great length, he want to leave despite knowing the risks of him leaving. This included , worsening infection potentially. The patient later signed an AMA paper. 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 SOCIAL HISTORY: Denies tobacco, drug use. Has a history of alcohol abuse, last drink was one year ago. 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 ALLERGIES: Please see below. HOME MEDICATIONS: Please see below. PHYSICAL EXAMINATION: VS: Stable, see below CONSTITUTIONAL: No acute distress, resting comfortably, AAO x 3 EYES: PERRLA, EOM intact HENT, MOUTH: Normocephalic, atraumatic, moist mucous membranes NECK: SUPPLE, no JVD, no lymphadenopathy, no carotid bruit CV: Regular rate and rhythm, S1S2 normal, no murmurs/rubs/gallops RESPIRATORY: Clear to auscultation bilaterally, no rales/rhonchi/wheezes GI: distended, tense abd, + fluid wave. BS positive in 4 quadrants, rebound or guarding, hepatomegaly. : Deferred MUSCULOSKELETAL: Normal ROM. No cyanosis, clubbing, swelling, joint deformity, extremity edema INTEGUMENTARY: Intact, no rashes, no lesions, no erythema NEUROLOGIC: Cranial Nerves II-XII are intact, no focal deficits PSYCHIATRIC: Mood and affect are normal LABORATORY DATA: Please see below IMAGING: CT abd/pelvis: Severe ascites and evidence for cirrhosis. Further evaluation is limited. Evidence for cholelithiasis and diverticulosis. 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 AT TIME OF LEAVING AMA DIAGNOSES WERE BELOW: Abdominal ascites secondary to liver cirrhosis 2/2 to chronic Hep B and hx of alcohol abuse Chronic Hep B Ethnic vs. familial neutropenia, pancytopenia Hx of alcohol abuse DISPOSITION: leaving AMA. Admitted as acute inpatient. Call placed to patient's professional services manager, Dr. Etienne, [facility] with no call back. TIME SPENT ON DISCHARGE: 20 minutes. Vital Signs/I&Os Vital Signs Date Time Temp Pulse Resp B/P (MAP) Pulse Ox O2 Delivery O2 Flow Rate FiO2 07/28/21 17:32 98.3 72 18 141/96 (111) 97 Room Air Laboratory Data Labs 24H Laboratory Tests 2 07/28/21 12:49: Immature Granulocyte % (Auto) 0.0, Neutrophils (%) (Auto) 29.4L, Lymphocytes (%) (Auto) 62.2H, Monocytes (%) (Auto) 6.7, Eosinophils (%) (Auto) 1.3, Basophils (%) (Auto) 0.4, Neutrophils # (Auto) 0.7L, Lymphocytes # (Auto) 1.4L, Monocytes # (Auto) 0.2, Eosinophils # (Auto) 0.0, Basophils # (Auto) 0.0, Nucleated Red Blood Cells % (auto) 0.0, Immature Platelet Fraction 9.8, Anion Gap 2L, Glomerular Filtration Rate > 60.0, Calcium Level 8.0L, Total Bilirubin 2.4H, Direct Bilirubin 1.6H, Aspartate Amino Transf (AST/SGOT) 74H, Alanine Aminotransferase (ALT/SGPT) 51, Alkaline Phosphatase 154H, Total Protein 7.9, Albumin 2.2L, Albumin/Globulin Ratio 0.4, Lipase 200, Hepatitis A IgM Antibody NEGATIVE, Hepatitis B Surface Antigen POSITIVEH, Hepatitis B Core IgM Antibody NEGATIVE, Hepatitis C Antibody Index 0.1 07/28/21 13:53: Urine Color YELLOW, Urine Appearance CLEAR, Urine pH 6.0, Urine Specific Somers 1.013, Urine Protein NEGATIVE, Urine Glucose (UA) NEGATIVE, Urine Ketones NEGATIVE, Urine Blood NEGATIVE, Urine Nitrite NEGATIVE, Urine Bilirubin NEGATIVE, Urine Urobilinogen 4.0H, Urine Leukocyte Esterase NEGATIVE, Urine WBC (Auto) 0, Urine RBC (Auto) 0, Urine Hyaline Casts (Auto) 0, Urine Bacteria (Auto) NEGATIVE, Urine Squamous Epithelial Cells 0, Urine Mucus (Auto) SMALL, Urine Sperm (Auto) 07/28/21 15:48: Prothrombin Time 20.0H, Prothromb Time International Ratio 1.65, Activated Partial Thromboplast Time 36.3 07/28/21 16:22: Nucleated Red Blood Cells % (auto) 0.0 07/28/21 16:23: Tumor Marker Alpha Fetoprotein 14.6H 07/28/21 16:24: Prothrombin Time 19.4H, Prothromb Time International Ratio 1.60, Anion Gap 1L, Glomerular Filtration Rate > 60.0, Calcium Level 7.8L, Total Bilirubin 2.2H, Aspartate Amino Transf (AST/SGOT) 70H, Alanine Aminotransferase (ALT/SGPT) 48, Alkaline Phosphatase 150H, Total Protein 7.5, Albumin 2.1L, Albumin/Globulin Ratio 0.4, HIV Antigen/Antibody Combo Qual NEGATIVE CBC/BMP Laboratory Tests 07/28/21 12:49 07/28/21 16:22 07/28/21 16:24 Discharge Medications Scheduled Furosemide (Furosemide) 40 Mg Tablet, 40 MG PO DAILY, (Reported) Lisinopril/Hydrochlorothiazide (Lisinopril-Hctz 20-25 mg Tab) 1 Each Tablet, 1 TAB PO DAILY, (Reported) Tenofovir Alafenamide Fumarate (Vemlidy) 25 Mg Tablet, 25 MG PO DAILY, (Reported) Allergies Coded Allergies: No Known Allergies (Unverified , 03/29/19) Jordyn Engel MD Jul 28, 2021 18:13
[2021-07-28] MEDS ORDERED: FUROSEMIDE 40MG/4ML VIAL (J1940) IV SCH (21:00)
[2021-07-29] MEDS ORDERED: SPIRONOLACTONE 50 MG TAB PO SCH (09:00)
[2021-07-29] MEDS ORDERED: ENTER DRUG NAME HERE (PATIENT'S OWN MED) PO SCH (09:00)
[2021-07-29 16:16] VITALS: BP 172/106
== END 2021-07-28 18:14 | disposition left against medical advice (07) | DRG 434 ==
LOC: M ED 10:56 → M ED INP 15:30
PROVIDERS: ADMIT Internal Medicine; ATTEND Internal Medicine
DX: K70.31 Alcoholic cirrhosis of liver with ascites (principal); B18.2 Chronic viral hepatitis C; Z79.899 Other long term (current) drug therapy

== ENCOUNTER 2021-07-29 06:59 | Inpatient (IN) | payer OTHER ==
[~2021-07-29] VITALS: Ht 170.2 cm; Wt 76.9 kg
[~2021-07-29 06:59] MED LIST changes: +FURO40TA2 PO; +LISI20TA20 PO; +VEML25TA PO
--- OUTSIDE RECORDS SUMMARY | 2021-07-29 07:05 | CCD ---
Author Author [facility] Organization [facility] Address Unknown Phone Unavailable Care Team Providers Care Casino Porter Name Role Phone Taisha Dutta MD (Jack) Unavailable Unavailable Taisha Dutta) Unavailable Unavailable Taisha Dutta) Unavailable Unavailable Taisha Dutta) Unavailable Unavailable Taisha Dutta) Unavailable Unavailable Taisha Dutta) Unavailable Unavailable Taisha Dutta) Unavailable Unavailable Taisha Dutta) Unavailable Unavailable Taisha Dutta) Unavailable Unavailable Taisha Dutta) Unavailable Unavailable Taisha Dutta) Unavailable Unavailable Taisha Dutta) Unavailable Unavailable Taisha Dutta) Unavailable Unavailable Taisha Dutta) Unavailable Unavailable Taisha Dutta) Unavailable Unavailable Taisha Dutta) Unavailable Unavailable Taisha Dutta) Unavailable Unavailable Taisha Dutta) Unavailable Unavailable Taisha Dutta) Unavailable Unavailable Taisha Dutta) Unavailable Unavailable Taisha Dutta) Unavailable Unavailable Taisha Dutta) Unavailable Unavailable Taisha Dutta) Unavailable Unavailable Taisha Dutta) Unavailable Unavailable Taisha Dutta) Unavailable Unavailable Taisha Dutta) Unavailable Unavailable Taisha Dutta) Unavailable Unavailable Taisha Dutta) Unavailable Unavailable Tin, Taisha Jean (Augusto) MD [...] Taisha Jean (Augusto) MD Unavailable Unavailable Tin, Tiasha Jean (Augusto) MD Unavailable Unavailable Tin, Taisha [...] Tin, Taisha Jean (Augusto) MD Unavailable Unavailable Sondra GUTIERREZ MD Unavailable [...] GUTIERREZ MD Unavailable Unavailable OBEN, T DANNIE MD [...] GUTIERREZ MD Unavailable Unavailable OBEN, T DANNIE MD [...] Unavailable OBEN, T DANNIE MD Unavailable Unavailable Re-disclosure Warning The records [...] is protected by Article 27-F of the [facility] Public Health law. If you continue you may have access to information: Regarding HIV / AIDS; Provided by facilities licensed or operated by the [facility] Office of Mental Health; or Provided by the [facility] Office for People With Developmental Disabilities. If such information is present, then the following [facility] mandated warning applies: This information has [...] law may result in a fine or long term sentence or both. A general authorization for the release of medical or other information is NOT sufficient authorization for further disc losure. Encounters Encounter Providers Location Date Indications Data Source(s ) Outpatient Attender: JARAD GUTIERREZ MD Family Practice 07/16/2021 0 2:30:00 PM EDT [facility] ([facility]) Outpatient Attender: JARAD GUTIERREZ MD 2020 02:22:00 PM EDT - 07/16/2021 02:22:00 PM EDT [facility] Outpatient Attender: DANNIE VELA MD 06/10/20 11:03:00 AM EDT - 06/10/2021 11:03:00 AM EDT [facility] Outpatient Attender: DANNIE VELA MD Family Practice 06/10/2021 11:00:0 0 AM EDT [facility] ([facility]) Attender: Taisha Dutta MD (Jack) 08/01/2020 [...] type / Coverage type Policy ID Covered alliance party ID Covered alliance party's relationship to de anda Policy De Anda Plan Information U [id number] Self [id number] Human [id number] [facility] ACTIVE DUTY [id number] SP [id number] [facility] [employer] [place] [id number] 18 [id number] ACTIVE DUTY [id number] SP [id number] [facility] Problems, Conditions, and Diagnoses Code Display Name Description Problem Type Effective Dates Data Source(s) N432 Other hydrocele Other hydrocele Diagnosis 06/10/2021 11:0 3:00 AM EDT [facility] Surgeries/Procedures Procedure Description Date Indications Data Source(s) OFFICE OUTPATIENT NEW 30 MINUTES 07/16/2021 12:00:00 A M EDT [facility] ([facility]) OFFICE OUTPATIENT NEW 45 MINUTES 06/10/2021 12:00:00 A M EDT [facility] ([facility]) OFFICE OUTPATIENT NEW 20 MINUTES 06/10/2021 12:00:00 A M EDT [facility] ([facility]) Results ID Date Data Source [id number] 06/10/2021 03:48:00 PM EDT [facility] ([facility]) Name Value Range Interpretation Code Description Data Francine rce(s) Supporting Document(s) Appearance of Urine Laboratory test result [facility] ([facility]) Color of Urine Laboratory test result [facility] ([facility]) Spec Hendley 1.005 1.001-1.030 [facility] ([facility]) Leukocytes Laboratory test result [facility] ([facility]) Nitrate [Presence] in Urine Laboratory test result [facility] ([facility]) pH of Urine by Test strip 5 5-9 [facility] ([facility]) Protein [Presence] in Urine by Test strip Laboratory test result [facility] ([facility]) Inhouse Glucose Laboratory test result [facility] ([facility]) Urobilinogen Laboratory test result [facility] ([facility]) Bilirubin.total [Presence] in Urine by Test strip Laboratory test res ult [facility] ([facility]) Ketones [Presence] in Urine by Test strip Laboratory test result [facility] ([facility]) Blood type and Indirect antibody screen panel - Blood Laboratory test result [facility] ([facility]) ID Date Data Source [id number] 07/31/2020 01:00:00 PM EDT [facility] Name Value Range Interpretation Code Description Data Francine rce(s) Supporting Document(s) Follow Up [facility] GPIQKp1nXzEUXkJbGKFmJjqZEVzeVJduGLQoV0M2ZDkuTa5REZdejoXyRBKtXc4+TVJiQA3mii0jUCQq gMy [file] spring upholsterer+Lzfh8N93//beGSofxX/0yO+LPSzaafUrFIDyqZ9VSYPPuCXwbYoLmlf4YPWNh8wOVJgqsUp2n9/u9 [file] ywGJrUFRTlf/wNrFtqyVRipMTFUGTKnKpHxmLbLHHH AImwAINM0sj7OyBDvv5deExGvrH1bndDvnCmeZBRCYJM32sQkPcu4a+8cvEEX4Y56Sd8iMyYimpdABtg C7AH4U8zP9fl8YS0Oh+lAbKuHD+vNeLhBjA1E//9cJYY1g28QwP532SgS89P+bWh6PDqV/p9U6Uf9RsR w31LjQ9OyXrG+Dakft7GAxjHPB/DpUVdKnogYxkuI0 BdSY3xjEjmEMRpMU2oHOpfxBNHx6ezpt+LRNRuPlsAXllj/jQGMxa89eqrCCJvf28zN0N7dD7cte8+b5 bAX+nOb+44YUTu6acnx6INXpE1LSRaYVho7zpgo4nHPlQehkiISCY5tRD984msFYysMBiDX8c7+3Sm/o 0xgj4IYGXrEV06fMjzZ4670RVx7+SxU2Dlzt+e7V6h iHsf5dtUiFVZKv3+K/Aircraft General Repair Mechanic/F9lME5IvqFC2Myl157jLL6P1H7aF9GOf3A2YjGh/akFtbW460IKdkU9q+a N19vKSc4vLOkWDcqjUTsGRnwEIAn9DDkwrZrrFvSTzY3t+suiDCvvq+OljP7ulDgw1Be60B65nPBt/kK 07hfzQ+Epw+dMbN2DgrWvN6PP4csL/73UDq6Idkp15 P7+KbWvnOn3IU5SuItGgKX92sZT6qZIJoxOOpxH9f7jDGHzM+S0T0eKTi7D6UiBJwr3bscsvI2C5+asF +XsghNQsoXkFo7tqK61x93aCq0Jh7aKMcY80636Rlemn2+jQlU1S8L5pQWp8Ur8U2MDTifAUIj8MKilG 997CjEEE5Sn9y5o3Y6W95B7Q9q0VUQtqEaf1amcb62 [file] vp foundation+6XQ5jwh/dt+/KrSemLax/FoCmo7gQKmRiCVNRWo [file] f+aQKOyhnqJDSu0VO68sZ3YwByM1Opg9EaeLD93rhfI7rT2FY4Rq5adMc501r70if+cumulative effects analyst/92qJt+Wm+t [file] iP++Iván/+HOWqOqjm+WjXXXFNqLOlfmdKj+LNlTkXzRuyNksDKtXac8N8DYtrvxCMD4zxEiTeAfSngfL PxsvVx9NCu7sf3Kdusj2KFraqbEii0il0dx3lj17IqxFp348E0NnOCwA9N/AeAneNH+RL1dXeDUfVt7r B1GXlsDIgH4EuMLB4Gb64KSAo8Ef/GG6PKFkfPly3O E0DF0K7rZsLl+fXMsZNvCMFpR1eRpvv4sEQPmLoty/2Yph3Kdlo09hAnUJBxj/Vz01qw2Grw4xpeHADF 75eJvae3NL1MGLErG8Qz8E6IE4RVeunQGmJ4xoiK8XoVHyTCo0M96Q1yyhWnt1d+/Pizano/6IeyGViJujkf [file] RkA6LPK1qCAhBw0IHGD4Czd4FXoeIHNUCz== ID Date Data Source [id number] 07/31/2020 12:00:00 AM EDT [facility] Name Value Range Interpretation Code Description Data Francine rce(s) Supporting Document(s) SARS coronavirus 2 RNA panel N [facility] This lab was ordered by [facility] ([facility]) and reported by [facility]. 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+UsjVa1NHyDogfVbeOsJOhWJV6YSPEokD5KGhga [file] CÉSAR+8hUumY/++F4oFtOgyVCqbBMKn3fasgwVDI2wug [file] 5zTojme+KlEkda60zy4kS0DuXgnXNDKiaQGF8vh2q6e6vnjL1hM93BDUmqyG6pQi+l+evp global multimedia sales/iv1LTpxxy c42Zep/tNf/+qP4atliZMPxkd54SME3riP9ONHs7Skid442r/zcqULyCP/rw95/rEl+rYnU+J8b/Ih3z W4ryo5tby9i3n/eWzRD+3JeYzd250iu0oeQy8FSwPl soWlMbs06+53LPueEfDc054DZ12XPQ57Rlv7j2penqzLBrHO3USau1M/a/X7p5hm/nadfn2QO3Gv1yk5 McWNZrjkNuLt5KPhjMQYij4zKSHyQ2//t1LQ/18PdKDQHWCQf/VIbRp4V6sXObGbBfLaRoeGfUlPFn3d 6p0DKXKDZhJPZOxhlouX768shCKGEcphuQT2VITJgU [file] arv0ygOUO6ThoxSmnHe+hEyYnnI55l9+G8CC51h/Simón/Nk+vGCcLqwMr+4MOruJrm5x/WYQMOOhTRsZF skx0UToXZL9gtHS7C+nlTGANGLWvla1sK4yvZY9nmp 4FZz8VsbKbm7D/+WLqzVdOn411kbDh/LjRNTZqIJJYhKdcJ3YIiJmj1r5B4V+jOVFcV90VCS6MRNNJYp TV36Su8YNI3Y7lfwDHPb5g7cpAjAgEJu2FZ28FxfOMEujKj+Vw+cTMc39dYU0yzgaRak2UDC0z7UPXsw IQKa2u3hfpWqORAOppzQpLnDEHQgMrpc9HjFvIzPY3 nrgtdgSsR1h8+dq1lcLrlVWvJCutw5L81QpWHhnzelyqBf7kXYbWrARtbWtHHDM9N1yoE/ZoVQYIsHAF 3vxfLmf8rPaaZP+obKUDpCq6QnLKsKfUGpTEtAWSpl2uK35wrZ8N5nlEjsoqVvTjfmy6ERL5C9KFRkkM scqVwnvnGjMB9R5USFeM+P6UxcAR/onhT9jpyoADBg GvoXG3fTsEzOQuYH+8Y2qqbmcYmqR8psyTp9UDFrNjlu/Nicho/xabbJFRUhwyszvM5/zl/mGyxzWpaHfD [file] vp foundation+GPFJ/zusuCtqzoXjKV/WALlm8s8n4PBkPUKC2/wzhb422bCPCATYLO0IrDwuN+rMsOW1qC15s0I+e [file] +4tHoeELPYWM+C3bhj8xJwr/VMEM1N+iobKazjWc/NcXSDlFvjzMME05mkoi479rBLVNBIa5GyYl+carpenter's helper [file] oYi4hyMBpq81yUDL9vDRJf4K2OkOX+4JBdzK6tdcG1wjLw2znI7BIKhYi6ZDQNUQ1KOaTB2Um/rG+Nguyễn [file] 2V49+lM9TMREFV7cJ6XIsAVc6UMLYjQhi9dlbbBl0A+nN/8JTbtSerc7q1QDs5C63iStguTLuEi7D/[place] FR3KVKqaAXmZG9m8tJwuq9uv2in76na0FCncLR2xRL Ik9wT1+jVhUbmmR0I+LhDABbWn0F6CfKXJ/oYtanTUKaxrjVjb2eHWkEGI82I1o2gfwyUO7hv7sgpQiH j5sdM0BU6OCo7RbsXxRpxpegQY6PnGTwq5TGtTAzZ/LTsvoQ3dT334LQ4ezRaj4qv1yCOHW4wyq52nd0 0k8TiVuwSaZ/L7/wcreyWsNNv2SaYZ3os/vRdI0Pul eGVrzIS53iNBA6JWOXQ+5yY/mftURiss2i5YQKWiQcKUmAZQPRAaMBEmxYdqaKIJ9x9FsIAHtZKufT3C dcv+NX2yrCwNqkOUnvzwyK0kfUw9aRvzYb+W308pxcSUrcjzF4u9/Jqr6Cpw9w9ODrxiJ9ewK3lg/cJP FEtu71up6u8YCz8PfByBB1ntMRk695SwcaN4aSA0Gf ZifO0fesrM+Ho3uY/B5UATY6TFswxaYjzTRbRL8CPA2ws6RrSTCfQYBks2ExCJf4D4wmqwv9qXVyKG7+ y5UkGWHnRNnqPzWnWeMmVXJoCcacUBDzDTXpfMxxWR4pJvYKuttMRPjqvpLajHAfAL5FTY7yu3WeVKNk QNEfq3YwABm3N7VjnNSwhvVwIfazgNTFSEOfSLBsPK PtV7ZkPANgG3uEXIv2R6B9VOK7TMURAKVkKbBFFfyRHuYQUYVEHfCpMsL3CEY+FSynHLCTLyS1ORR3Hh R9YwIWZCK9MaF1ZPTZKNTEDjCoIJ3wU8Unt2ZvTQAdVTTwXY9ngdSnQZMfAz1OyFrcMHD3J4S3fJMkV7 oUSEKiQsYsVKC8PUUaHq3ohLMmRA6DOocoJ4JtPPNb YASSXGDSAkx+LIVCDSAqESCfAKyTRqeYeGWWYLMCfNJJtjPkwleDUg8cVlHjGgZBYXhwEwZLLfBsKIY9 sxWrkO9HQR4zs3RvBR5Qg9DfviZ4ajFkDLd9Tjq0UcgREzAcDG5K Procedure Social History No Information Vital Signs ID Date Data Source UNK Name Value Range Interpretation Code Description Data Source(s) [facility]olic blood [facility] 142 mm[facility]Hg[facility] Diastolic blood pressure 88 mm[Hg] 88 mm[Hg] [facility] ([facility]) Heart rate 77 /min 77 /min [facility] ([facility]) Body temperature 98.6 [degF] 98.6 [degF] [facility] ([facility]) Respiratory rate 18 /min 18 /min [facility] ( [facility]) Oxygen saturation in Arterial blood by Pulse oximetry 97 % 97 % [facility] ([facility]) Body weight 187.00 [lb_av] 187.00 [lb_av] [facility] ([facility]) Body weight 84.823 kg 84.823 kg [facility] ([facility]) Body height 67 [in_i] 67 [in_i] [facility] ([facility]) 5'7" Body mass index (BMI) [Ratio] 29.3 kg/m2 29.3 k g/m2 [facility] ([facility]) Body surface area Derived from formula 1.97 m2 1.97 m2 [facility] ([facility]) Body height 67 [in_i] 67 [in_i] [facility] ([facility]) 5'7" Systolic blood pressure 160 mm[Hg] 160 mm[Hg] [facility] ([facility]) Diastolic blood pressure 103 mm[Hg] 103 mm[Hg] [facility] ([facility]) Heart rate 56 /min 56 /min [facility] Oxygen saturation in Arterial blood by Pulse oximetry 98 % 98 % [facility] ([facility]) Body weight 176.00 [lb_av] 176.00 [lb_av] [facility] ([facility]) Body weight 79.834 kg 79.834 kg [facility] Body mass index (BMI) [Ratio] 27.6 kg/m2 27.6 k g/m2 [facility] ([facility]) Body surface area Derived from formula 1.92 m2 1.92 m2 [facility] ([facility])
--- OUTSIDE RECORDS SUMMARY | 2021-07-29 07:59 | CCD ---
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 If you continue you may have access to information: Regarding HIV / AIDS; Provided by facilities licensed or operated by the [facility] Office of Mental Health; or Provided by the [facility] Office for People With Developmental Disabilities. If such information is present, then the following [facility] mandated warning applies: This information has been [...] law may result in a fine or snf sentence or both. A general authorization for the release of medical or other information is NOT sufficient authorization for further disc losure. Encounters Encounter Providers Location Date Indications Data Source(s ) Outpatient Attender: JARAD GUTIERREZ MD Family Practice 07/16/2021 0 2:30:00 PM EDT [facility] ([facility]) Outpatient Attender: JARAD GUTIERREZ MD 2020 02:22:00 PM EDT - 07/16/2021 02:22:00 PM EDT [facility] Outpatient Attender: DANNIE VELA MD 06/10/20 11:03:00 AM EDT - 06/10/2021 11:03:00 AM EDT [facility] Outpatient Attender: DANNIE VELA MD Family Practice 06/10/2021 11:00:0 0 AM EDT [facility] ([facility]) Attender: Taisha Dutta MD (Jack) 08/01/2020 08: [...] anda Policy De Anda Plan Information U [id number] Self [id number] Human [id number] [facility] ACTIVE DUTY [id number] SP [id number] [facility] [employer] [place] [id number] 18 [id number] ACTIVE DUTY [id number] SP [id number] [facility] Problems, Conditions, and Diagnoses Code Display Name Description Problem Type Effective Dates Data Source(s) N432 Other hydrocele Other hydrocele Diagnosis 06/10/2021 11:0 3:00 AM EDT [facility] Surgeries/Procedures Procedure Description Date Indications Data Source(s) OFFICE OUTPATIENT NEW 30 MINUTES 07/16/2021 12:00:00 A M EDT [facility] ([facility]) OFFICE OUTPATIENT NEW 45 MINUTES 06/10/2021 12:00:00 A M EDT [facility] ([facility]) OFFICE OUTPATIENT NEW 20 MINUTES 06/10/2021 12:00:00 A M EDT [facility] ([facility]) Results ID Date Data Source [id number] 06/10/2021 03:48:00 PM EDT [facility] ([facility]) Name Value Range Interpretation Code Description Data Francine rce(s) Supporting Document(s) Appearance of Urine Laboratory test result [facility] ([facility]) Color of Urine Laboratory test result [facility] ([facility]) Spec [place] 1.005 1.001-1.030 [facility] ([facility]) Leukocytes Laboratory test result [facility] ([facility]) Nitrate [Presence] in Urine Laboratory test result [facility] ([facility]) pH of Urine by Test strip 5 5-9 [facility] NT ([facility]) Protein [Presence] in Urine by Test strip Laboratory test result [facility] ([facility]) Inhouse Glucose Laboratory test result [facility] ([facility]) Urobilinogen Laboratory test result [facility] ([facility]) Bilirubin.total [Presence] in Urine by Test strip Laboratory test res ult [facility] ([facility]) Ketones [Presence] in Urine by Test strip Laboratory test result [facility] ([facility]) Blood type and Indirect antibody screen panel - Blood Laboratory test result [facility] ([facility]) ID Date Data Source [id number] 07/31/2020 01:00:00 PM EDT [facility] Name Value Range Interpretation Code Description Data Francine rce(s) Supporting Document(s) Follow Up [facility] GJJKGi0oXdSLOsKaUQInLidHWGncZYldXTAbC8G4CVfvLs9BYCxlhsZwJYApPa3+XUCrFT2ljb6uODMe gMy [file] fluoroscope operator+Bilx8K76//beGSofxX/0yO+VAGjfpcWjIPSzuC2RWXXZzJGjiVoLhsv6QAJWm6wRKFumaCi5e8/u9 [file] ywGJrUFRTlf/wNrFtqyVRipMTFUGTKnKpHxmLbLHHH KYxwKGJT1vr2ZnBDwg7qzDwEaaE5tfjVymCxqSEQVNPO73zIgHgp1s+3dkHZU8F47Jp9mDeDiwcfVXkb U7XW3O2sZ7hm2BG6Ur+lAbKuHD+iYjJcNpY9D//2lHLD2y42OlZ126YnL52Y+wWg5YQmE/a6Y8Wg4NyP j29PvH5HsWbY+Ujnyr3HDubLDN/DpUVdKnogYxkuI0 VnYX0uiTxlPNJkIZ5oXZkrqMKYd1wzst+LRNRuPlsAXllj/mRBUwf33xneEYTwo47uW7N7oC8pkl7+b5 bAX+nOb+42IWXw8plfj0BFApS3NUSsRWqv5dkgx2dGLrGxrekOXSK1pTK409jaHHwvUNxNH7s7+3Sm/o 7xck2BULOkUD19yIjqW3128GCj2+PwK6Ukgm+e7V6h iBwh1pxXhYGWMi5+K/Fisher Dip Net/Z1kTR4ScfZS0Jpl433xVV0H6B5xJ4FEa0W4AfIx/mvLdnK602HGvfH5o+a J62qPZc3qZZbMNsdkXSrIEqcXUGo8NAldvUsjGdTQyP3b+suiDCvvq+EqtG5bzUad5Zo65Q00lVLb/kK 07hfzQ+Epw+hJcY6XttEbI0FI0pgG/94MCe9Puqo29 P7+DzZtpQu3AW8RcSiFsZO11kYI7rXERwuFXwjM6x4oZOViG+O7V0kHRx1S3QfADpv8vmlaaD4U0+asF +CycaSGkcAvBu4dpV53q55xJd2As8pJRnQ23126Rekxf6+pKpF5T7H8hSDb6Mh1M1NHDilDKWp8YCfbE 851AlMLA8Jg5m4n1Q8L21P3R2a2JTUhgJkq1fcao77 [file] evp general counsel+6FY6ypu/dt+/KrSemLax/TkXew3zBUqTaZNJTMp [file] f+eRAObnqoYKOs6SG19aK5MqPhY0Xfl6LjsOP63ntrU5wI9GX7Tv8czBr656a69du+ed educational aide/92qJt+Wm+t [file] OLWWag286zt4HpA2kosjhjWN/TV/I4cyIWjeFytEuX/rigging man/pr9sM2GI5jBpGuTxgAWcORINB16kBilbLN [file] iP++Iván/+HOWqOqjm+WjXXXFNqLOlfmdKj+PNcVgYwWpaBzsZQgHps8V1XLhtnzOHG2osIiSvKnRdjtT BhuvHh3MTw7zq9Zvrsl2WZifnkSmz6ou4lb4cm61UwnXf770S5QxMHyA6R/AeAneNH+YG3uJdLYgGt9b O9NHxpLDxQ5UvEDM2Nt79COCh5Ls/QG0LVFdeKfj8J Z7AK4B6qWzOh+vDAmKLaZAYdT6aMlkp0vRZRxGxps/6Xoi9Bjmm85qTnMVZuv/Eb87pj0Ted2mluKSGC 31rZbzk5CF6WHTKjE3Ze7Y9SL3BHqtoIRbP9bsfI9IyHPyKWu6J40N2pxtVdy3w+/Pizano/6IeyGViJujkf [file] QtW5YBU8kUFuZq3NYOS5Skn2IJehAXENZd== ID Date Data Source [id number] 07/31/2020 12:00:00 AM EDT [facility] Name Value Range Interpretation Code Description Data Francine rce(s) Supporting Document(s) SARS coronavirus 2 RNA panel N [facility] This lab was ordered by [facility] ([facility]) and reported by [facility]. ID Date Data Source [id number] 06/26/2020 01:15:00 PM EDT [facility] Name Value Range Interpretation Code Description Data Francine rce(s) Supporting Document(s) First Visit [facility] RDUPLb7iKkLRMzFmTXApInhODNccCBofXWBtX1N9DKqtYi6BJKbegiIxBRYtEz8+SCVyTQ3wcc1xCSUp gMy [file] YHt/L/SdtnLScYSX63XEaH/ZPrd+HwmSJGS+1EmS7oRitoYUqw5WOiqA7OzCBeDn0lBLdzFNXg9Y/José [file] volunteer patient representative+WvlKa2UHuRtzgNrlCwAJuCCG4JICVndA7UDlvp [file] CÉSAR+8hUumY/++M8yLyVutMSbfEHXp9kobgaYYE3uij [file] 5zTojme+RaBjkf18ah4nO1SyWriHKXAscRRS8ns9a2g2qwzJ1aX52OGNzejL4fWw+l+endodontics dentist/vn1LEsnmk c42Zep/tNf/+rD4zuqkXIWduu19KMW3cqM9LJYg7Mlpb703d/zcqULyCP/rw95/rEl+rYnU+J8b/Ih3z N6glg4zbd5g6q/eWzRD+0JpHpf749pq1rkYj0ZNaBx xsEoOqi67+99TWciWhLe044KH13CJB36Hdk9w2wrswjQZtLG2ICjn6G/a/X7p5hm/ljfom6AD8Rf9ab3 GxLEHcnwXpBh5CDknSFZxl2wCGUwJ6//t1LQ/18PdKDQHWCQf/WYcSb0K7eOYsDnDuUiGawDjWbPEt4h 0t0UFIOUBwKBFLtnckzQ404cgAZRUbubpXD9KNOMtO [file] juk7kcDSC8JtenOuiNc+fZvRekM45f9+J0VC85i/Simón/Nk+vGCcLqwMr+6BKduBoj3h/WYQMOOhTRsZF bkp8GXiIKQ2beND9W+iwDMDHLYZqat9kK0syHN0wdi 7BRc0BkpAnd4J/+GPbfSoVt714uwFj/StWPYUsMPUUuCqvM7MYwOhv0b9U5U+kBQMeF32KOY4UIGQROn TT92Xa5HWG6V7qqrOYMp2q6jpRjEmXEf2KL82CpdKFPkkEa+Vw+mUEv96xBF7bkqxHnl0MYV3l5GBKbg FXAx7p8xdqJtOAQWvljAuHbYGIWsCeug7PnImUqPB7 wpcnggMoA5d2+gt3kyQrcUVsDLgsv5R75QzVWcdzcbniXw0nFTlFeQTooDcENHA6R3alQ/ZoVQYIsHAF 3subSdk5hGtdQT+hwSDAiJn9FmZYyXkHFtAObFKLpl3iO65peW7C8ldZsttnFrQtenl1NEV3L0DNRsdM ooxAxmuiLwSD1S4FTKeT+U0HvxLI/cchF1susaFQVw WpfMD0sKoTlTQdPA+3W9zkkinWqgN4vlrTa3CVVdIufs/Nicho/xabbJFRUhwyszvM5/zl/mGyxzWpaHfD [file] evp general counsel+GPFJ/zusuCtqzoXjKV/NVUqe1k0y7ICpUYKO7/igkn568zEOXHSZBD6EjIukE+nDwAG3dH17m4U+e [file] +4tHoeELPYWM+T6fjj1nTaq/VMEM1N+iobKazjWc/DhUSVyJokzWDC47mqpk555aRJDTNFd2XrKv+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 [file] nLq5haVUoe20bSMN1cOFNa8W5ZiHL+1XQymX2bsoI9mpKz9kpP6CNFfWo5VMLRCT1TLaQK5Fa/rG+Nguyễn [file] 2V49+xL2BMGKDC2aZ8IBzHGe0KPRHdPlr0hfaoAl0V+nN/8NJvlLhqn5l7ZFg4F56sUxklSGcGn8M/[place] GP0JFGsoXVxFB4m3zWjcq6zf2kq64bc7BBvjYA4iHD Ik9wT1+dNyHfkcK7D+UiDXDrRp8C9TxSOX/bHszcTXItvlaWpu9oPEbUJE88I5n6bqulOQ0an7nwaUdZ m2vkT0QC3UEx3GakLkFrvnxxVJ8NkHUbg3MDvVDlP/HIjgzU7pZ598QZ2wyBwy2nd9lCIRA6hmt05rk8 3g0JeIhtSkO/L7/epebiZkDUx6GvLY5sl/lYbX4Gdh kDGvfWN08hCNX7AVBXP+5yY/fzwIPpoj1w6SZMBuVmROnQMKBKZpPOPkaHdxzAJR0f6SkCVDqIAqyV5Y dcv+JL7yqZhWdlRCewavkH2vbBv6hBjoNs+D542hzvPGuemxC3l5/Pgu7Ucu9e1SZnwnM9xsU8mi/cJP JEja08cm2u7KUe0PrDiVU7xlVTj190MjqpB2jZH8Ok CpyF1qrjaF+Ho3uY/N4ZVCG0VDastyUvyJPeMI9BNX4cj5UkYDCoTQTky4SzKXo8T4qxdqi7bGIzKN0+ u5TtAIJdXLghFwWxGoHfTNLaPsroGJYjDNHbfYraFB7qWpWQxjxNDQhwqgIacGAwQY8COD2lm2WbRPYa IYAib0LnQTg1I6CdcUKencFhDyisyOPPIHItBOAnUT GoA6QhSGNuL2fAVJn8D0F1CAQ8KTWDQXRiYcMDYmoKIoXQYQJGGnEwVhU0ZWM+FDftMZSQIoP6RXB4Xx Z7OoTKOTD1ToN1WBLBOSCRAlJtWG4eB5Xpi8SpGFEdKXRhQB6zwkJjCSGnKu5ZwJhtPJK7I6H4lXKaD2 sEFISnXlGzKOO1UKCeIs5orVAjDD2JFdcmR7ZsJABh YASSXGDSAkx+ASWBFSMcSMAxZPkCUnbCsTGNJGUCuBNBboFjgncYYr8xVeErXqBUSBroEpUTZwMhSIE9 tfCvqO1WWI2hp8UuOS3Fw4JcfvQ0dvOgHNr7Qpa2GhjCXdPaPH5V Procedure Social History No Information Vital Signs ID Date Data Source UNK Name Value Range Interpretation Code Description Data Source(s) Systolic blood pressure 142 mm[facility]Hg] 142 [facility]Hg[facility] Diastolic blood pressure 88 mm[Hg] 88 mm[Hg] [facility] ([facility]) Heart rate 77 /min 77 /min [facility] ([facility]) Body temperature 98.6 [degF] 98.6 [degF] [facility] ([facility]) Respiratory rate 18 /min 18 /min [facility] ( [facility]) Oxygen saturation in Arterial blood by Pulse oximetry 97 % 97 % [facility] ([facility]) Body weight 187.00 [lb_av] 187.00 [lb_av] [facility] ([facility]) Body weight 84.823 kg 84.823 kg [facility] ([facility]) Body height 67 [in_i] 67 [in_i] [facility] ([facility]) 5'7" Body mass index (BMI) [Ratio] 29.3 kg/m2 29.3 k g/m2 [facility] ([facility]) Body surface area Derived from formula 1.97 m2 1.97 m2 [facility] ([facility]) Body height 67 [in_i] 67 [in_i] [facility] ([facility]) 5'7" Systolic blood pressure 160 mm[Hg] 160 mm[Hg] M [facility] ([facility]) Diastolic blood pressure 103 mm[Hg] 103 mm[Hg] [facility] ([facility]) Heart rate 56 /min 56 /min [facility] Oxygen saturation in Arterial blood by Pulse oximetry 98 % 98 % [facility] ([facility]) Body weight 176.00 [lb_av] 176.00 [lb_av] [facility] ([facility]) Body weight 79.834 kg 79.834 kg [facility] Body mass index (BMI) [Ratio] 27.6 kg/m2 27.6 k g/m2 [facility] ([facility]) Body surface area Derived from formula 1.92 m2 1.92 m2 [facility] ([facility])
[2021-07-29 08:01] LABS: BASO % 0.4 % (0.0-1.0); EOS # 0.1 10^3/uL (0.0-0.5); EOS % 2.4 % (0.0-3.0); HEMOGLOBIN 12.2 g/dl (13.5-17.5); LYMPH # 1.4 10^3/uL (1.5-5.0); LYMPH % 57.6 % (24.0-44.0); MEAN CORPUSCULAR HGB CONC 33.9 g/dl (32.0-36.5); MEAN CORPUSCULAR VOLUME 91.4 fl (80.0-96.0); MONO # 0.2 10^3/uL (0.0-0.8); MONO % 9.6 % (2.0-8.0); RED BLOOD COUNT 3.94 10^6/uL (4.30-6.10); WHITE BLOOD COUNT 2.5 10^3/uL (4.0-10.0)
[2021-07-29 08:39] LABS: NEUTROPHILS # 0.8 10^3/uL (1.5-8.5); PLATELET COUNT, AUTOMATED 58 10^3/uL (150-450)
[2021-07-29] MEDS ORDERED: ACETAMINOPHEN TAB 650MG DOSE (2X325MG) PO PRN (08:40)
--- OUTSIDE RECORDS SUMMARY | 2021-07-29 08:50 | CCD ---
Author Author [facility] Organization [facility] Address Unknown Phone Unavailable Care Team Providers Care Target Network Analyst Name Role Phone Taisha Dutta MD (Jack) [...] (Augusto) MD Unavailable Unavailable Tin, Taisha Jean (Augsuto) MD Unavailable Unavailable Tin, Taisha Jean (Augusto) [...] is protected by Article 27-F of the [facility] Public Health law. If you continue you may have access to information: Regarding HIV / AIDS; Provided by facilities licensed or operated by the [facility] Office of Mental Health; or Provided by the [facility] Office for People With Developmental Disabilities. If such information is present, then the following [facility] mandated warning applies: This information has [...] law may result in a fine or mcc sentence or both. A general authorization for the release of medical or other information is NOT sufficient authorization for further disc losure. Encounters Encounter Providers Location Date Indications Data Source(s ) Outpatient Attender: JARAD GUTIERREZ MD Family Practice 07/16/2021 0 2:30:00 PM EDT [facility] ([facility]) Outpatient Attender: JARAD GUTIERREZ MD 2020 02:22:00 PM EDT - 07/16/2021 02:22:00 PM EDT [facility] Outpatient Attender: DANNIE VELA MD 06/10/20 11:03:00 AM EDT - 06/10/2021 11:03:00 AM EDT [facility] Outpatient Attender: DANNIE VELA MD Family Practice 06/10/2021 11:00:0 0 AM EDT [facility] ([facility]) Attender: Taisha Dutta MD (Jack) 08/01/2020 [...] type / Coverage type Policy ID Covered republican ID Covered republican's relationship to de anda Policy De Anda Plan Information U [id number] Self [id number] Human [id number] [facility] ACTIVE DUTY [id number] SP [id number] [facility] [employer] [place] [id number] 18 [id number] ACTIVE DUTY [id number] SP [id number] [facility] Problems, Conditions, and Diagnoses Code Display Name Description Problem Type Effective Dates Data Source(s) N432 Other hydrocele Other hydrocele Diagnosis 06/10/2021 11:0 3:00 AM EDT [facility] Surgeries/Procedures Procedure Description Date Indications Data Source(s) OFFICE OUTPATIENT NEW 30 MINUTES 07/16/2021 12:00:00 A M EDT [facility] ([facility]) OFFICE OUTPATIENT NEW 45 MINUTES 06/10/2021 12:00:00 A M EDT [facility] ([facility]) OFFICE OUTPATIENT NEW 20 MINUTES 06/10/2021 12:00:00 A M EDT [facility] ([facility]) Results ID Date Data Source [id number] 06/10/2021 03:48:00 PM EDT [facility] ([facility]) Name Value Range Interpretation Code Description Data Francine rce(s) Supporting Document(s) Appearance of Urine Laboratory test result [facility] ([facility]) Color of Urine Laboratory test result [facility] ([facility]) Spec [place] 1.005 1.001-1.030 [facility] ([facility]) Leukocytes Laboratory test result [facility] ([facility]) Nitrate [Presence] in Urine Laboratory test result [facility] ([facility]) pH of Urine by Test strip 5 5-9 [facility] ([facility]) Protein [Presence] in Urine by Test strip Laboratory test result [facility] ([facility]) Inhouse Glucose Laboratory test result [facility] ([facility]) Urobilinogen Laboratory test result [facility] ([facility]) Bilirubin.total [Presence] in Urine by Test strip Laboratory test res ult [facility] ([facility]) Ketones [Presence] in Urine by Test strip Laboratory test result [facility] ([facility]) Blood type and Indirect antibody screen panel - Blood Laboratory test result [facility] ([facility]) ID Date Data Source [id number] 07/31/2020 01:00:00 PM EDT [facility] Name Value Range Interpretation Code Description Data Francine rce(s) Supporting Document(s) Follow Up [facility] XVFJPj9aWoCKBdFdGDBxIejECCqvHJjuVDDcJ6G8LFnqDr6QYSwojmCxUTUmLn2+OCEbOY5tnv8bXHHc gMy [file] caretaker resort+Kuak5H33//beGSofxX/0yO+OTPydraJpJBFpcP3JARHObHRttTdScay3NEGSa4zPVDatbAt9j4/u9 [file] ywGJrUFRTlf/wNrFtqyVRipMTFUGTKnKpHxmLbLHHH VFsgNAFV8re8PiVRld0mhYwRboJ5nppNjsRlrXFBPJKF72mQiZpa8k+8jwWSW5B10Ni6yWhBhyevCBvz I5XZ6G1yZ9gp6FC1Qm+lAbKuHD+qTiDaVbD5W//4cFML0w10OxA840KnV64E+oFr3EMfA/c2H5Yg6EzJ t74ZrF3ZyOkP+Trczj6JFscUSK/DpUVdKnogYxkuI0 KbUC1nmOoaCOLhUN1zDYbrcMLHo4czsw+LRNRuPlsAXllj/tHFDcl97xcpRDZxv70wA2T5qH9qsa3+b5 bAX+nOb+60XMFq7tgje6JBWfC5TZEiYTgi2ngmu6kAPwOvpsaPQWW3xEU549zhSOzdGLoAJ3k9+3Sm/o 9hnq4PFTRbAH50gWonO5226XAv1+FxE1Xqay+e7V6h bYcz2cqOvPJCHj3+K/Research Agricultural Engineer/O2sTF5QwuUN2Nle378dDU8L3E8sL1UAd8D2AfVq/adMrkS998VMwaG8o+a A26jVSx9tFSuSNqrpQCeSVxeQWFb3IBcorWxoLvUNdP8m+suiDCvvq+DqyZ1kwGtk7Dc90B47yQAp/kK 07hfzQ+Epw+iZoD0TtbScT1YE1mwP/45YPk1Ayqb11 P7+TiUvzGj1CE9LzEfCsVV39fHA8vNVCgjGFogO4i7rNNCbS+M3F4zVIj0W4FzALjm3uofftR9A2+asF +WkjaKGwlSbCu5otS38l70dDy8Iv5yGFyE89059Bqumg4+dNuY2Y4R7oFSv5Ta4D8TKKahCPPq6OGylV 088HtTNN3Ua5u9c8Q5Z51M6L7n0GOGpeRvh1twva02 [file] vp director of creative strategy+7UP3hts/dt+/KrSemLax/FnUyo8gZAvGvIPRTEc [file] f+fEQQzqmbDRTf9GY61mJ9IkKxP8Pav1WhqPE05kxjG7pL5VX4Xa9dwLu236t98ls+reo asset manager/92qJt+Wm+t [file] iP++Iván/+HOWqOqjm+WjXXXFNqLOlfmdKj+AKwYmKpBczRugMYrKgt7Q2BWgafzXCM8poSaCgWxEprrD StayZr6ADn8cb5Mmdus8PSovtsAoo0hf7mw3zi25UtiXw302Y3KnMFtX1X/AeAneNH+OP0vKbLEzEh3d K2ZAqmUWiZ9WcKFI8Dc84WIRn0Po/BH8GDPjdTqi0P K0GD9J8qXhZw+nWPoKTqKLDkQ8qMrvz1dSCBmHsfj/9Rqw4Dtow42fRiHVKwh/Md41my4Tjl9egaGOPQ 72vJmii9CK5ZIAWdU0Lq5C6UB6PQzevNJlA9warG6MmSMnBKs4K00W6wnuUwg2n+/Pizano/6IeyGViJujkf [file] UzE8WNC9lKKqNk1QZOJ7Gik7LMwsXFNKAv== ID Date Data Source [id number] 07/31/2020 12:00:00 AM EDT [facility] Name Value Range Interpretation Code Description Data Francine rce(s) Supporting Document(s) SARS coronavirus 2 RNA panel N [facility] This lab was ordered by [facility] ([facility]) and reported by [facility]. ID Date Data Source [id number] 06/26/2020 01:15:00 PM EDT [facility] Name Value Range Interpretation Code Description Data Francine rce(s) Supporting Document(s) First [facility] XVDJJp4vLbDMNqReJIHmFuyWTEjoNHlfTVKlR2Q5UEhtZh0IOJmrziSsPUAbCc9+GYUyCD7uay2bZXJi gMy [file] YHt/L/RysjSMbBFQ60XSmL/ZPrd+HwmSJGS+2UcT4vXurpNNdl3NUnmT6MgCSpPz2pXLepUHDj0L/José [file] health insurance agent+NizNo5SMfPulqFuyTfZLwRTX3ZIQYrcJ0DUkcs [file] CÉSAR+8hUumY/++E9iAnPetKRgaQYXi8cdoacGJJ6yze [file] 5zTojme+XwEfcv70hd5kM9VxMbmYWMJhaKFG7qv8o1u0zkuG6mW96FSCgitI4sPu+l+operations architect/vx7WVoymo c42Zep/tNf/+rA6qbpzOGJong18HDT0veP1FAKh0Mwbe223a/zcqULyCP/rw95/rEl+rYnU+J8b/Ih3z F3heq6dfy1s7w/eWzRD+8WiOfp658wr0hkBt9EKwAp ttGtLyf90+08GWzbNbVb725BB49GSE19Acl2m5nwaggAVoSH1JTfr4T/a/X7p5hm/lvuvt7VV1Hb5jg6 VeVUOvbySjLu1DTipMGHbp3jNBMmF6//t1LQ/18PdKDQHWCQf/BRtLb8U4qIZvGjLcZbXsbPqThBZd7d 6h3ELLYUJqAZFHoohdyG568kjTVSGwptjCN4UDUPrE [file] txm4aoJVF5QfjrNzfNc+dVxMndL89r1+A7FF70f/Simón/Nk+vGCcLqwMr+6NOgvCxk4a/WYQMOOhTRsZF ahg5WOcQDP6zzGA0J+cpQLSZJMGfra0tN5wnYZ8uoe 3BKh2CncQdo9Y/+XDpqJySn026axGv/MjIWLWpDZWXlZmwA8SGnMyk9p1Y1A+uEXEfL99DYG4SRQBODe WO75Yd6UVK2N2gfcBSOs7a3zlSxYaLPk5JB79TefUEYpcIm+Vw+pELn66zNT5vxsyRth1UHD3a2HIIsb WRAg0z9zmiOqTIVSbayLiEgRRKIcMrqs1HmAqPcOA4 dkaplyNoE8j4+ku5lgBuuJRwFHlaj0O98EuDJipudbhbFa5sSDpBuUKjpVrOQLR0R9joQ/ZoVQYIsHAF 2attVbx6gMuxDN+thCFJvZj6AoOPqLaJDzNSlNOQgg5oI95ueA3T3heBoqgdWxGdhre5CKZ7F7NZPueR dojTysosNmXM7X5FWNxU+Q6CmtZB/pleI5lrqcREVh RsdFJ5fVwHdUYkFZ+9W4wdwpaEubR1depHv2XGXfLpjm/Nicho/xabbJFRUhwyszvM5/zl/mGyxzWpaHfD [file] vp director of creative strategy+GPFJ/zusuCtqzoXjKV/GZOza3i4d0MVeTXBO5/qzso418jCTWBBLMO5NdJcjO+kJpUU5lT82o3J+e [file] +4tHoeELPYWM+U4jwk3eEoo/VMEM1N+iobKazjWc/ThDAVhCuloRSC61htfy959gLIYEBXd8TaKi+phys assistant [file] mMl5bpHFok57pKHQ7cAGVi4A8XiBX+4VCauQ4wwyW2qvQw5iqA2KKAzXq1WWDDDI3GTyUF8Yh/rG+Nguyễn [file] 2V49+rR7LCSEYG4tI6YYuPWk8STKDqYku9uinsYu5V+nN/4TLbsAzdb5n0SEw9Q57tHtrfKArYi7F/[place]ado WI4XYHmdWVlHF7m6fMbnn0ua4nx95os4OFvkSB9cFH Ik9wT1+uCbGbkwO7N+TvGAAsHw3N3CfVNO/eIdlkWFPliviMop3xFSaQGH09M9s3avjcOE7qx4iamWnY d6xuI3KO9MIw1EdxClKitihkBT1FeBNid8XUzFTeX/VQdggG6xN842WZ6tlOju2uk9mKOXC8qxw13wi2 1x4GbOwuOyJ/L7/ajwqwZmRGk8SdFR1vw/jFeA4Nou iGYqdQT43aWDQ5MKRLY+5yY/wgeMFdpe8s2NWZApAdEKkEEDATAnMJAhkNvziYUO4i0PxKQEgLElpJ4E dcv+WP6fzDpDisWFktymeX1zsHp9dAsuRx+Q462mytMYoqrnW0x6/Aac4Sin5k8ZGzgyS7jwI3ce/cJP AAru42vw0w4QVe3FnMiHL3vqSAy319DaiwS3wDF9Fc BkyW4kshjN+Ho3uY/T8BRKK9JHszpmXtdXPlGS2WIQ0gk2FaFNPlGNOhy7ClBZn2P7jqyqo6wHUqRJ1+ n5IiWTCgNYjuZrLfCyZoFRTcJctwSRWrEFVvfZihOR6zHfJZfbmHDFlqliObhWScVC5KMU1dw9MvRJDd SVUqn7UvFJv1Z8OjmJGobgLgHtguaSOJERTpZCNxZH KiZ6HrZMPxE3oVHQj1L4C0VQZ4WICLSUBpGwYHZweVPcLRPBBXHwQmOnQ4KLZ+YKkzHNWNTuE4KZM6Mt V6TxNRLYV5VhN0FJAXTYXKWtEqZT9cU3Eoq1ZmDUGzFYKxNY7entRbYHJwRd1TiVmdMFB4W4D5wELnF2 nFMPOuFsEaKTR7KYFwOi7rdIHrZX5NJeqhK5OrNCOt YASSXGDSAkx+SURKPBAqKGEyVVjLQnqEvLCUVECRhSDOnpYwdfxEVp4rKlYxKuMKVDtvKeARJyFdSIG0 waSusG2XHZ8rf4OuID9Rh5UbpwH0hkQlQCl1Rwf2GdeJXjLsUX3N Procedure Social History No Information Vital Signs ID Date Data Source UNK Name Value Range Interpretation Code Description Data Source(s) [facility]stolic blood [facility] 142 mm[Hg] 142 mm[facility]Hg[facility] Diastolic blood pressure 88 mm[Hg] 88 mm[Hg] [facility] ([facility]) Heart rate 77 /min 77 /min [facility] ([facility]) Body temperature 98.6 [degF] 98.6 [degF] [facility] ([facility]) Respiratory rate 18 /min 18 /min [facility] ( [facility]) Oxygen saturation in Arterial blood by Pulse oximetry 97 % 97 % [facility] ([facility]) Body weight 187.00 [lb_av] 187.00 [lb_av] [facility] ([facility]) Body weight 84.823 kg 84.823 kg [facility] ([facility]) Body height 67 [in_i] 67 [in_i] [facility] ([facility]) 5'7" Body mass index (BMI) [Ratio] 29.3 kg/m2 29.3 k g/m2 [facility] ([facility]) Body surface area Derived from formula 1.97 m2 1.97 m2 [facility] ([facility]) Body height 67 [in_i] 67 [in_i] [facility] ([facility]) 5'7" Systolic blood pressure 160 mm[Hg] 160 mm[Hg] [facility] ([facility]) Diastolic blood pressure 103 mm[Hg] 103 mm[Hg] [facility] ([facility]) Heart rate 56 /min 56 /min [facility] Oxygen saturation in Arterial blood by Pulse oximetry 98 % 98 % [facility] ([facility]) Body weight 176.00 [lb_av] 176.00 [lb_av] [facility] ([facility]) Body weight 79.834 kg 79.834 kg [facility] Body mass index (BMI) [Ratio] 27.6 kg/m2 27.6 k g/m2 [facility] ([facility]) Body surface area Derived from formula 1.92 m2 1.92 m2 [facility] ([facility])
--- NOTE | 2021-07-29 08:51 | HPEPDOC ---
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 The patient is a chronic hepatitis B patient followed by hepatology,Dr. Dela Cruz, through [facility]. He is currently on tenofovir for hepatitis B infection. The patient states over the past one week he's noticed increased abdominal girth, increased fullness with nausea intermittently. He has vomited a handful of times, nonbloody of just bile. He denies chest pain, short of breath, diarrhea. The patient states his last alcoholic beverage was 1 year ago. He states he last saw his cnc set up operator this summer and at that time he was stable. His abdominal distention is new since his evaluation with him. He was sent to the emergency room for further evaluation. In the emergency room on 07/28/21, vital signs were stable. H&H stable. The patient had pancytopenia; however, when compared with labs over the past 2 years this appears to be chronic. 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 INR 1.6, no signs of bleeding. The patient had obvious abdominal distention, tense, uncomfortable on palpation, positive fluid wave. CT of abd/pelvis showed severe ascites. A call was placed to his cnc set up operator office but no callback was received. The patient is on tenofovir for Hepatitis B infection tx. Ultimately the patient was admitted but her later left AMA due to family issues from the ER. He came back the AM of 07/29/21 with the same complaint, not worsend. He was admitted under medicine service for ascites secondary to liver cirrhosis REVIEW OF SYSTEMS: CONSTITUTIONAL: Denies lack of energy, unexplained weight loss, loss of appetite, fever, night sweats EYES: Denies eye drainage, eye pain, visual changes, dry/irritated eye EARS, NOSE, MOUTH, THROAT: Denies difficulty hearing, ringing in ears, mouth sores, loose teeth, sore throat, facial numbness or pain NECK: Denies swollen glands CARDIOVASCULAR: Denies irregular heartbeat, racing heart, chest pains, swelling of feet or legs, pain in legs with walking RESPIRATORY: Denies shortness of breath, night sweats, wheezing, sputum production, oxygen at home, coughing up blood, cough lasting > 1 month GASTROINTESTINAL: Denies constipation, bloody stool, diarrhea, heartburn GENITOURINARY: Denies painful urination, bloody urine, frequent urination, urgency, leaking urine, impotence MUSCULOSKELETAL: Denies joint pain, muscle pain, leg swelling INTEGUMENTARY: Denies rash, itching, new skin lesion, change in existing skin lesion, hair loss or increase, breast changes. 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 SOCIAL HISTORY: Denies tobacco, drug use. Has a history of alcohol abuse, last drink was one year ago. 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 ALLERGIES: Please see below. HOME MEDICATIONS: Please see below. PHYSICAL EXAMINATION: VS: Stable, see below CONSTITUTIONAL: No acute distress, resting comfortably, AAO x 3 EYES: PERRLA, EOM intact HENT, MOUTH: Normocephalic, atraumatic, moist mucous membranes NECK: SUPPLE, no JVD, no lymphadenopathy, no carotid bruit CV: Regular rate and rhythm, S1S2 normal, no murmurs/rubs/gallops RESPIRATORY: Clear to auscultation bilaterally, no rales/rhonchi/wheezes GI: distended, tense abd, + fluid wave. BS positive in 4 quadrants, rebound or guarding, hepatomegaly. : Deferred MUSCULOSKELETAL: Normal ROM. No cyanosis, clubbing, swelling, joint deformity, extremity edema INTEGUMENTARY: Intact, no rashes, no lesions, no erythema NEUROLOGIC: Cranial Nerves II-XII are intact, no focal deficits PSYCHIATRIC: Mood and affect are normal LABORATORY DATA: Please see below IMAGING: CT abd/pelvis: Severe ascites and evidence for cirrhosis. Further evaluation is limited. Evidence for cholelithiasis and diverticulosis. 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 PLAN: Abdominal ascites secondary to liver cirrhosis 2/2 to chronic Hep B and hx of alcohol abuse -New over the past one week according to patient -MELD score 16, attempted to call cnc set up operator and [place], left message with Dr. Dela Cruz's office for call back on 07/28/21. Will try again today -Admitted for diuresis, paracentesis scheduled for 07/29/2021 -Discussed with our GI briefly. Suggested Liver US, starting lasix BID and spironolactone 100 mg PO daily. Can increase spironolactone if needed to BID based on toleration. -Tx of Hep B below -Follow-up CMP daily Chronic Hep B -Followed by cnc set up operator -On tenofovir, continue -Discussed with Dr. Enriquez Ethnic vs. familial neutropenia, pancytopenia -No s/s of bleeding -H/H stable, low WBC and PLTs similar to 2019 when patient saw hematology here -F/u CBC daily, recommend f/u as o/p -Peripheral smear previously normal, will order new one today -Consider heme consult if worsens Hx of alcohol abuse -States he has not drank in 1 yr -No s/s of withdrawl DVT px -SCDs, teds. No AC due to paracentesis and low PLTs DISPOSITION: Admitted as acute inpatient. Call placed to patient's cnc set up operator, Dr. Sargent, [facility] with no call back. Will admit and hopefully discuss with specialist soon. Vital Signs Vital Signs Date Time Temp Pulse Resp B/P (MAP) Pulse Ox O2 Delivery O2 Flow Rate FiO2 07/29/21 07:45 77 18 153/99 (117) 100 Room Air 07/29/21 06:59 98.0 Laboratory Data Labs 24H Laboratory Tests 2 07/29/21 07:39: Immature Granulocyte % (Auto) 0.0, Neutrophils (%) (Auto) 30.0L, Lymphocytes (%) (Auto) 57.6H, Monocytes (%) (Auto) 9.6H, Eosinophils (%) (Auto) 2.4, Basophils (%) (Auto) 0.4, Neutrophils # (Auto) 0.8L, Lymphocytes # (Auto) 1.4L, Monocytes # (Auto) 0.2, Eosinophils # (Auto) 0.1, Basophils # (Auto) 0.0, Nucleated Red Blood Cells % (auto) 0.0 07/29/21 08:28: CBC/BMP Laboratory Tests 07/29/21 07:39 Home Medications Scheduled Furosemide (Furosemide) 40 Mg Tablet, 40 MG PO DAILY Lisinopril/Hydrochlorothiazide (Lisinopril-Hctz 20-25 mg Tab) 1 Each Tablet, 1 TAB PO DAILY Tenofovir Alafenamide Fumarate (Vemlidy) 25 Mg Tablet, 25 MG PO DAILY Allergies Coded Allergies: No Known Allergies (Unverified , 03/29/19) A-FIB/CHADSVASC A-FIB History Current/History of A-Fib/PAF?: No Current PO Anticoag Therapy: No Age/Risk Factor Scoring CHADSVASC: CHADSVASC Response (Comments) Value Age Risk Factor Age < 65 years old 0 Gender Risk Factor Male 0 Hx of CHF No 0 Hx of HTN Yes 1 Hx of Stroke/TIA/or VTE No 0 Hx of Diabetes No 0 Hx of Vascular Disease No 0 Total 1 Treatment Treatment ordered: NONE Other anticoagulant ordered: Jordyn Arias MD Jul 29, 2021 08:51
[2021-07-29 08:52] LABS: ALBUMIN 1.9 GM/DL (3.2-5.2); ALT/SGPT 45 U/L (12-78); BILIRUBIN,TOTAL 2.1 MG/DL (0.2-1.0); BLOOD UREA NITROGEN 9 MG/DL (7-18); CALCIUM LEVEL 8.1 MG/DL (8.5-10.1); CARBON DIOXIDE LEVEL 25 MEQ/L (21-32); CHLORIDE LEVEL 110 MEQ/L (98-107); CREATININE FOR GFR 1.11 MG/DL (0.70-1.30); GLOMERULAR FILTRATION RATE > 60.0 (>60); GLUCOSE, FASTING 129 MG/DL (70-100); LIPASE 214 U/L (73-393); SODIUM LEVEL 138 MEQ/L (136-145); TOTAL PROTEIN 7.2 GM/DL (6.4-8.2)
[2021-07-29] MEDS ORDERED: HOME MED LIST COMPLETE! XX SCH (08:55)
[2021-07-29] MEDS ORDERED: TENOFOVIR ALAFENAMIDE 25 MG PO SCH (09:00)
[2021-07-29 09:20] LABS: RSV AMPLIFICATION NEGATIVE (NEGATIVE)
[2021-07-29 09:24] VITALS: BP 159/110
[2021-07-29] MEDS: FUROSEMIDE 40MG/4ML VIAL (J1940) IV SCH ×2 (09:25→18:28)
[2021-07-29 12:00] VITALS: BP 169/99
[2021-07-29] MEDS: SPIRONOLACTONE 50 MG TAB PO SCH (12:19)
[2021-07-29 12:53] LABS: INR 1.48; PROTHROMBIN TIME 18.4 SECONDS (12.7-14.5)
[2021-07-29 12:54] LABS: PARTIAL THROMBOPLASTIN TIME 33.2 SECONDS (25.9-37.0)
[2021-07-29 14:00] VITALS: BP 135/80
[2021-07-29 15:38] LABS: APPEARANCE, URINE CLEAR (CLEAR); BACTERIA, URINE AUTO NEGATIVE (NEGATIVE); BILIRUBIN, URINE AUTO NEGATIVE (NEGATIVE); BLOOD, URINE BLOOD NEGATIVE (NEGATIVE); COLOR, URINE YELLOW (YELLOW); GLUCOSE, URINE (UA) AUTO NEGATIVE (NEGATIVE); KETONE, URINE AUTO NEGATIVE (NEGATIVE); LEUKOCYTE ESTERASE, URINE AUTO NEGATIVE (NEGATIVE); NITRITE, URINE AUTO NEGATIVE (NEGATIVE); PROTEIN, URINE AUTO NEGATIVE (NEGATIVE); RBC, URINE AUTO 0 /HPF (0-3); SPECIFIC GRAVITY URINE AUTO 1.011 (1.002-1.035); SQUAMOUS EPITHELIAL CELL UR AU 0 /HPF (0-6); WBC, URINE AUTO 0 /HPF (0-3)
[2021-07-29 16:28] LABS: SPEC. GRAVITY BODY FLUIDS 1.014 (NOT ESTABLISHED)
[2021-07-29 17:08] LABS: SOURCE, BODY FLUID ALBUMIN PERITONEAL; SOURCE, BODY FLUID GLUCOSE PERITONEAL; SOURCE, BODY FLUID TOT PROTEIN PERITONEAL; TOTAL PROTEIN, BODY FLUID 1.9 G/DL (NOT ESTABLISHED)
[2021-07-29 17:26] LABS: APPEARANCE, BODY FLUID CLEAR (CLEAR); PERITONEAL FL COLOR YELLOW (COLORLESS); SOURCE, BODY FLUID PERITONEAL
--- NOTE | 2021-07-29 18:10 | REP ---
INDICATION: r/o portal vein thrombosis, closer eval of cirrhotic liver. COMPARISON: CT 07/28/2021. TECHNIQUE: Real-time sonographic evaluation of ABDOMEN PERFORMED, WITH DUPLEX DOPPLER EVALUATION OF PORTAL VASCULATURE. FINDINGS: The gallbladder demonstrates no evidence of intraluminal sludge or calculi, or pericholecystic fluid. Gallbladder wall appears somewhat thickened, 4-5 mm, likely secondary to ascites. There is no intrahepatic or extrahepatic biliary dilatation, common bile duct measures 4 mm in maximum diameter. Liver has a cirrhotic appearance with no gross mass. Pancreas is grossly unremarkable, not optimally seen due to overlying bowel gas. Spleen is mildly enlarged based on a splenic index of 610, with no intrinsic abnormality, measuring 11.6 cm in length. There is no evidence of hydronephrosis, cyst, mass, or calculus in either kidney. The right kidney measures 11.4 x 5.1 x 4.3 cm. Left renal dimensions are 10.7 x 5.1 x 4.5 cm. The abdominal aorta is normal in caliber with no aneurysm. Moderate diffuse ascites. The main portal vein measures 10 mm in diameter. The splenic vein and portal veins demonstrate normal direction of flow, with normal flow velocities. The portal and hepatic veins demonstrate phasicity. There is no portal vein thrombosis. Hepatic veins are patent with no thrombus. Patent main hepatic artery demonstrates peak systolic velocity of 78.2 centimeters/second. IMPRESSION: Gallbladder wall thickening likely secondary to moderate ascites. Cirrhotic liver with no gross mass. No portal vein dilatation. Mild splenomegaly. Portal vasculature demonstrates normal direction of flow with no thrombosis. No evidence of hepatic vein thrombosis. <Electronically signed by Milo Tucker > 07/29/21 [id number]
--- NOTE | 2021-07-29 18:14 | REP ---
INDICATION: swollen testes. COMPARISON: None. TECHNIQUE: Real-time sonographic evaluation of scrotum and contents performed. FINDINGS: The testicles are normal in size, right testicle measuring 3.4 x 1.3 x 1.7 cm and left testicle 2.4 x 1.6 x 1.9 cm. There is no testicular mass or torsion, blood flow is seen in each testicle with duplex Doppler evaluation. Few tiny punctate calcifications are seen in each testicle. The epididymis is unremarkable bilaterally. Ascites fluid is seen in the left inguinal canal extending to the external ring and compressing the lateral aspect of the right testicle and inferior aspect of the left testicle. IMPRESSION: No testicular mass or torsion. Ascites fluid extends into the left inguinal canal to the external ring and compresses the lateral right testicle and inferior left testicle. <Electronically signed by Milo Tucker > 07/29/21 [id number]
[2021-07-29 22:00] VITALS: BP 139/91
[2021-07-30 05:30] VITALS: BP 121/75
[2021-07-30 06:43] LABS: HEMATOCRIT 35.1 % (42.0-52.0); MEAN CORPUSCULAR HEMOGLOBIN 30.9 pg (27.0-33.0); MEAN CORPUSCULAR HGB CONC 34.2 g/dl (32.0-36.5); MEAN CORPUSCULAR VOLUME 90.5 fl (80.0-96.0); RED BLOOD COUNT 3.88 10^6/uL (4.30-6.10); WHITE BLOOD COUNT 2.1 10^3/uL (4.0-10.0)
[2021-07-30 06:49] LABS: PLATELET COUNT, AUTOMATED 52 10^3/uL (150-450)
[2021-07-30 07:06] LABS: BLOOD UREA NITROGEN 9 MG/DL (7-18); CALCIUM LEVEL 7.5 MG/DL (8.5-10.1); CARBON DIOXIDE LEVEL 30 MEQ/L (21-32); CHLORIDE LEVEL 108 MEQ/L (98-107); CREATININE FOR GFR 1.14 MG/DL (0.70-1.30); GLOMERULAR FILTRATION RATE > 60.0 (>60); GLUCOSE, FASTING 76 MG/DL (70-100); SODIUM LEVEL 141 MEQ/L (136-145)
[2021-07-30 07:07] LABS: ALBUMIN 1.7 GM/DL (3.2-5.2); ALT/SGPT 42 U/L (12-78); TOTAL PROTEIN 6.7 GM/DL (6.4-8.2)
[2021-07-30] MEDS: SPIRONOLACTONE 50 MG TAB PO SCH (09:06)
[2021-07-30] MEDS: FUROSEMIDE 40MG/4ML VIAL (J1940) IV SCH ×2 (09:06→17:23)
[2021-07-30 14:00] VITALS: BP 131/81
--- NOTE | 2021-07-30 15:18 | IPNPDOC ---
Date Seen The patient was seen on 07/30/21. Progress Note SUBJECTIVE: 6 L taken off with paracentesis, additional 2 + liters diuresed. BP stable. Patient more comfortable in abdomen, not likely peritoneal infection. Pending echocardiogram results. He denies chest pain, SOB, fevers, chills, increased abd pain. OBJECTIVE PHYSICAL EXAMINATION: VS: Stable, see below CONSTITUTIONAL: No acute distress, resting comfortably, AAO x 3 EYES: PERRLA, EOM intact HENT, MOUTH: Normocephalic, atraumatic, moist mucous membranes NECK: SUPPLE, no JVD, no lymphadenopathy, no carotid bruit CV: Regular rate and rhythm, S1S2 normal, no murmurs/rubs/gallops RESPIRATORY: Clear to auscultation bilaterally, no rales/rhonchi/wheezes GI: distended but less tense abd, + fluid wave. BS positive in 4 quadrants, rebound or guarding : mild scrotal swelling MUSCULOSKELETAL: Normal ROM. No cyanosis, clubbing, swelling, joint deformity, extremity edema +1 today-decreased from +3 07/29/21 INTEGUMENTARY: Intact, no rashes, no lesions, no erythema NEUROLOGIC: Cranial Nerves II-XII are intact, no focal deficits PSYCHIATRIC: Mood and affect are normal LABORATORY DATA: Please see below MICRO: UA neg Peritoneal fluid GS/cx: pending IMAGING: Echocardiogram 07/29/21: Pending report Scrotal US: No testicular mass or torsion. Ascites fluid extends into the left inguinal canal to the external ring and compresses the lateral right testicle and inferior left testicle. Echocardiogram: Abdominal US: Gallbladder wall thickening likely secondary to moderate ascites. Cirrhotic liver with no gross mass. No portal vein dilatation. Mild splenomegaly. Portal vasculature demonstrates normal direction of flow with no thrombosis. No evidence of hepatic vein thrombosis. CT abd/pelvis: Severe ascites and evidence for cirrhosis. Further evaluation is limited. Evidence for cholelithiasis and diverticulosis. 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 PLAN: Abdominal ascites secondary to liver cirrhosis 2/2 to chronic Hep B and hx of alcohol abuse -S/p 6 L removal with paracentesis on 07/29/21, additional diuresed -Peritoneal fluid not indicative of infection, other studies pending -MELD score 16 -D/w Dr. Glynn, perinatal tech at [facility] in [place], covering for Dr. Dela Cruz, patient's perinatal tech on 07/29/21. She suggested US and echocardiogram above to r/o other causes of massive ascites. -UA neg for protein so unlikely renal cause. -On lasix IV BID and spironolactone 100 mg PO daily. When not so hypertensive, may benefit from albumin since it is so low. -Tx of Hep B below -Follow-up CMP daily -To update Dr. 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 No AC due to low PLTs DISPOSITION: Admitted as acute inpatient. To touch base with hepatology Dr. Glynn, [facility] again today. VS, I&O, 24H, Fishbone Vital Signs/I&O Vital Signs Date Time Temp Pulse Resp B/P (MAP) Pulse Ox O2 Delivery O2 Flow Rate FiO2 07/30/21 05:30 97.9 72 18 121/75 (90) 100 Room Air I&O- Last 24 Hours up to 6 AM 07/30/21 06:00 Intake Total 600 ml Output Total 3400 ml Balance -2800 ml Laboratory Data 24H LABS Laboratory Tests 2 07/29/21 15:27: Urine Color YELLOW, Urine Appearance CLEAR, Urine pH 7.0, Urine Specific Robbins 1.011, Urine Protein NEGATIVE, Urine Glucose (Auto)(UA) NEGATIVE, Urine Ketones (Auto) NEGATIVE, Urine Blood NEGATIVE, Urine Nitrite NEGATIVE, Urine Bilirubin NEGATIVE, Urine Urobilinogen 4.0H, Urine Leukocyte Esterase (Auto) NEGATIVE, Urine WBC (Auto) 0, Urine RBC (Auto) 0, Urine Hyaline Casts (Auto) 0, Urine Bacteria (Auto) NEGATIVE, Urine Squamous Epithelial Cells 0, Urine Sperm (Auto) 07/29/21 16:08: Body Fluid Specific Robbins 1.014, Body Fluid WBC (Auto) 75H, Body Fluid RBC (Auto) < 2, Body Fluid Mononuclear Cells % Auto 96.0H, Fluid Polymorphonuclear Cell % Auto 4.0H, Body Fluid Glucose Source PERITONEAL, Body Fluid Glucose 113, Body Fluid Protein Source PERITONEAL, Body Fluid Total Protein 1.9, Body Fluid Albumin Source PERITONEAL, Body Fluid Albumin 0.4, Peritoneal Fluid Source PERITONEAL, Peritoneal Fluid Color YELLOW, Peritoneal Fluid Appearance CLEAR 07/30/21 06:10: Nucleated Red Blood Cells % (auto) 0.0, Immature Platelet Fraction 9.6, Anion Gap 3L, Glomerular Filtration Rate > 60.0, Calcium Level 7.5L, Total Bilirubin 2.0H, Aspartate Amino Transf (AST/SGOT) 65H, Alanine Aminotransferase (ALT/SGPT) 42, Alkaline Phosphatase 127H, Total Protein 6.7, Albumin 1.7L, Albumin/Globulin Ratio 0.3 CBC/BMP Laboratory Tests 07/30/21 06:10 Microbiology Microbiology 07/29/21 Fungal Smear, Received Pending 07/29/21 Fungal Culture, Received Pending 07/29/21 Anaerobic Culture, Received Pending 07/29/21 Acid Fast Stain, Received Pending 07/29/21 Mycobacterial Culture, Received Pending 07/29/21 Gram Stain - Final, Resulted 07/29/21 Body Fluid Culture, Resulted Pending Jordyn Engel MD Jul 30, 2021 15:18
--- NOTE | 2021-07-30 15:57 | ECHO ---
ECHOCARDIOGRAM DATE OF PROCEDURE: 07/29/2021 Age: 36 Gender: Male Height: 67 inches Weight: 191 pounds Body surface area: 1.98 m2 Inpatient, [facility], room 4216 REFERRING PHYSICIAN: Dr. Jordyn Engel INDICATION: Edema. MEASUREMENTS: 2D Measurements: RV - 3.8 cm LV - 5.0 cm Septum 0.9 cm Posterior wall 0.9 cm Aortic root 3.4 cm LA - 3.8 cm LVEF 70% Doppler Measurements: AV - 1.23 m/s LVOT - 0.97 m/s LVOT diameter 2.0 cm MV-E 67, A 54, E/A ratio 1.2 Early mitral deceleration time 176 msec E prime medial 7.3 A prime medial 10 E prime lateral 11 PV - 1.1 m/s Pulmonary artery acceleration time 109 msec PASP 30 mmHg IVC - 1.3 cm COMMENTS: Normal sinus rhythm without intraventricular conduction disturbance. M-mode and 2-dimensional echocardiography was performed with pulse, continuous wave, color flow, and tissue Doppler studies. Normal left ventricular size, wall thickness, and hyperkinetic wall motion. Normal left atrial size and Doppler assessment of LV diastolic function and estimated mean left atrial pressure. Normal right heart chamber sizes and motion with estimated pulmonary artery pressure upper limits of normal. Somewhat reduced IVC size with collapse against an elevated central venous pressure. Normal aortic dimensions. Mild aortic valvular sclerosis without stenosis but very mild insufficiency. Normal-appearing mitral valve with normal leaflet excursion and no posterior systolic buckling. Very mild (physiologic) insufficiency. Normal-appearing tricuspid valve with only trace insufficiency. No apparent intracardiac mass or pericardial effusion. Sizable amount of ascites in his abdomen.
--- NOTE | 2021-07-30 18:00 | REP ---
INDICATION: ABDOMINAL ASCITES, cirrhosis *Can take off up to 5-6 Liters The patient has a history of cirrhosis COMPARISON: None. TECHNIQUE: The procedure was performed by DAVID Wasserman, under the direct supervision of Dr. Tucker The risks and benefits of the procedure were explained to the patient and an informed consent was obtained both verbally and written. Directly prior to the start of the procedure a formal time-out was completed in the procedure room. The largest pocket of fluid was localized in the right lower quadrant using ultrasound guidance. The skin was prepped and draped in a sterile fashion. Ten ML of 1% lidocaine 10 mg/ml was used as a local anesthetic. An 8-[place] multi side-hole catheter was inserted using trocar technique. FINDINGS: 6000 mL of yellow fluid were removed from the patient. The patient tolerated the procedure well and there were no immediate complications. After the appropriate amount of monitored convalescence, the patient was discharged from the department. IMPRESSION: Technically successful paracentesis yielding 6000 mL of yellow fluid. Fluid sent for laboratory evaluation per order request. <Electronically signed by Liat Ny > 07/30/21 [id number] <Electronically signed by Milo Tucker > 07/30/21 [id number]
[2021-07-30 18:50] VITALS: BP 138/92
[2021-07-30 21:31] VITALS: BP 138/91
[2021-07-30 23:20] VITALS: BP 126/71
[2021-07-31] VITALS (15 sets, daily range): BP systolic 102–147; BP diastolic 72–98
[2021-07-31 07:39] LABS: HEMOGLOBIN 11.8 g/dl (13.5-17.5); MEAN CORPUSCULAR HEMOGLOBIN 30.9 pg (27.0-33.0); MEAN CORPUSCULAR HGB CONC 34.7 g/dl (32.0-36.5); RED BLOOD COUNT 3.82 10^6/uL (4.30-6.10); WHITE BLOOD COUNT 1.9 10^3/uL (4.0-10.0)
[2021-07-31 07:44] LABS: PLATELET COUNT, AUTOMATED 50 10^3/uL (150-450)
[2021-07-31] MEDS: SPIRONOLACTONE 50 MG TAB PO SCH (08:16)
[2021-07-31 08:17] LABS: ALBUMIN 2.6 GM/DL (3.2-5.2); ALT/SGPT 36 U/L (12-78); BILIRUBIN,TOTAL 1.7 MG/DL (0.2-1.0); BLOOD UREA NITROGEN 9 MG/DL (7-18); CALCIUM LEVEL 8.3 MG/DL (8.5-10.1); CARBON DIOXIDE LEVEL 28 MEQ/L (21-32); CHLORIDE LEVEL 110 MEQ/L (98-107); CREATININE FOR GFR 0.97 MG/DL (0.70-1.30); GLOMERULAR FILTRATION RATE > 60.0 (>60); GLUCOSE, FASTING 77 MG/DL (70-100); POTASSIUM SERUM 3.6 MEQ/L (3.5-5.1); SODIUM LEVEL 141 MEQ/L (136-145); TOTAL PROTEIN 6.9 GM/DL (6.4-8.2)
[2021-07-31] MEDS: FUROSEMIDE 40MG/4ML VIAL (J1940) IV SCH (08:17)
[2021-07-31] MEDS ORDERED: TORS20TA2 PO (08:30)
[2021-07-31] MEDS ORDERED: ALDA50TA2 PO (08:30)
[2021-07-31] MEDS ORDERED: TORSEMIDE 20 MG TAB PO SCH (17:00)
--- NOTE | 2021-07-31 19:25 | DS.PDOC ---
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 The patient is a chronic hepatitis B patient followed by hepatology,Dr. Dela Cruz, through [facility]. He is currently on tenofovir for hepatitis B infection. The patient states over the past one week he's noticed increased abdominal girth, increased fullness with nausea intermittently. He has vomited a handful of times, nonbloody of just bile. He denies chest pain, short of breath, diarrhea. The patient states his last alcoholic beverage was 1 year ago. He states he last saw his harness repairer this summer and at that time he was stable. His abdominal distention is new since his evaluation with him. He was sent to the emergency room for further evaluation. In the emergency room on 07/28/21, vital signs were stable. H&H stable. The patient had pancytopenia; however, when compared with labs over the past 2 years this appears to be chronic. 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 INR 1.6, no signs of bleeding. The patient had obvious abdominal distention, tense, uncomfortable on palpation, positive fluid wave. CT of abd/pelvis showed severe ascites. A call was placed to his harness repairer office but no callback was received. The patient is on tenofovir for Hepatitis B infection tx. Ultimately the patient was admitted but her later left AMA due to family issues from the ER. He came back the AM of 07/29/21 with the same complaint, not worsend. He was admitted under medicine service for ascites secondary to liver cirrhosis HOSPITAL COURSE: For abdominal ascites secondary to liver cirrhosis 2/2 to chronic Hep B and hx of alcohol abuse, patient underwent paracentesis on 07/29/21 where 6 L of fluid was removed. Studies showed likely hepatic cause and infection unlikely. HE was continued on spironolactone and lasix IV bid diuresing over 10L this admission, lost > 16 lbs. Other causes of ascites (cardiac, obstructive and renal) ruled out. Fungal peritoneal cx are pending and could take some time to return, its encouraged for his PCP to follow up on these tests. Case was discussed with Dr. Glynn, harness repairer at [facility] in [place], covering for Dr. Dela Cruz, patient's harness repairer on 07/29/21. She suggested d/c with torsemide 40 mg BID, spironolactone 100 mg daily, repeat paracentesis in 1 week after d/c, f/u with both his harness repairer (Dr. Dela Cruz) and local PCP. HE received 75 gm albumin on 07/30/21, 50 gm of albumin on 07/31/21. On 07/31/21 he was discharged to follow- up with PCP and hepatology. At the time of discharge his blood pressure was 1:30 systolic and the patient had no acute complaints. PAST MEDICAL HISTORY: chronic hepatitis B, history of alcohol abuse, liver cirrhosis, ethnic vs. f amilial neutropenia PAST SURGICAL HISTORY: None FAMILY HISTORY: HTN- mother. SOCIAL HISTORY: Denies tobacco, drug use. Has a history of alcohol abuse, last drink was one year ago. 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 ALLERGIES: Please see below. DISCHARGE MEDICATIONS: Please see below. PHYSICAL EXAMINATION: VS: Stable, see below CONSTITUTIONAL: No acute distress, resting comfortably, AAO x 3 EYES: PERRLA, EOM intact HENT, MOUTH: Normocephalic, atraumatic, moist mucous membranes NECK: SUPPLE, no JVD, no lymphadenopathy, no carotid bruit CV: Regular rate and rhythm, S1S2 normal, no murmurs/rubs/gallops RESPIRATORY: Clear to auscultation bilaterally, no rales/rhonchi/wheezes GI: distended but less tense abd, + fluid wave. BS positive in 4 quadrants, r ebound or guarding : mild scrotal swelling MUSCULOSKELETAL: Normal ROM. No cyanosis, clubbing, swelling, joint deformity, extremity edema +1 today-decreased from +3 07/29/21 INTEGUMENTARY: Intact, no rashes, no lesions, no erythema NEUROLOGIC: Cranial Nerves II-XII are intact, no focal deficits PSYCHIATRIC: Mood and affect are normal LABORATORY DATA: Please see below MICRO: UA neg Peritoneal fluid FUNGAL: pending IMAGING: Echocardiogram 07/29/21: Normal sinus rhythm without intraventricular conduction disturbance. M-mode and 2-dimensional echocardiography was performed with pulse, continuous wave, color flow, and tissue Doppler studies. Normal left ventricular size, wall thickness, and hyperkinetic wall motion. Normal left atrial size and Doppler assessment of LV diastolic function and estimated mean left atrial pressure. Normal right heart chamber sizes and motion with estimated pulmonary artery pressure upper limits of normal. Somewhat reduced IVC size with collapse against an elevated central venous pressure. Normal aortic dimensions. Mild aortic valvular sclerosis without stenosis but very mild insufficiency. Normal-appearing mitral valve with normal leaflet excursion and no posterior systolic buckling. Very mild (physiologic) insufficiency. Normal-appearing tricuspid valve with only trace insufficiency. No apparent intracardiac mass or pericardial effusion. Sizable amount of ascites in his abdomen. Scrotal US: No testicular mass or torsion. Ascites fluid extends into the left inguinal canal to the external ring and compresses the lateral right testicle and inferior left testicle. Echocardiogram: Abdominal US: Gallbladder wall thickening likely secondary to moderate ascites. Cirrhotic liver with no gross mass. No portal vein dilatation. Mild splenomegaly. Portal vasculature demonstrates normal direction of flow with no thrombosis. No ev idence of hepatic vein thrombosis. CT abd/pelvis: Severe ascites and evidence for cirrhosis. Further evaluation is limited. Evidence for cholelithiasis and diverticulosis. 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 PLAN: Abdominal ascites secondary to liver cirrhosis 2/2 to chronic Hep B and hx of alcohol abuse -S/p 6 L removal with paracentesis on 07/29/21, total diuresed this hopitalization approx 10L -Peritoneal fluid not indicative of infection, fungal pending but likely to neg -MELD score 16 -S/p lasix, 75 gm albumin on 07/30/21, 50 gm of albumin on 07/31/21 -D/w Dr. Glynn, harness repairer at [facility] in [place], covering for Dr. Dela Cruz, patient's harness repairer on 07/29/21. She suggested d/c with torsemide 40 mg BID, spironolactone 100 mg daily, repeat paracentesis in 1 week after d/c, f/u with both his harness repairer (Dr. Dela Cruz) and local PCP. 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 Results and procedure note to be sent to PCP and hepatology office. TIME SPENT ON DISCHARGE: 35 minutes. Vital Signs/I&Os Vital Signs Date Time Temp Pulse Resp B/P (MAP) Pulse Ox O2 Delivery O2 Flow Rate FiO2 07/31/21 17:50 98.1 71 132/94 99 Room Air 07/31/21 16:53 17 I&O- Last 24 Hours up to 6 AM 07/31/21 06:00 Intake Total 1660.0 ml Output Total 2050 ml Balance -390.0 ml Laboratory Data Labs 24H Laboratory Tests 2 07/31/21 07:20: Nucleated Red Blood Cells % (auto) 0.0, Immature Platelet Fraction 7.6, Anion Gap 3L, Glomerular Filtration Rate > 60.0, Calcium Level 8.3L, Total Bilirubin 1.7H, Aspartate Amino Transf (AST/SGOT) 49H, Alanine Aminotransferase (ALT/SGPT) 36, Alkaline Phosphatase 114, Total Protein 6.9, Albumin 2.6#L, Albumin/Globulin Ratio 0.6 CBC/BMP Laboratory Tests 07/31/21 07:20 Microbiology Microbiology 07/29/21 Fungal Smear, Received Pending 07/29/21 Fungal Culture, Received Pending 07/29/21 Anaerobic Culture - Final, Complete 07/29/21 Acid Fast Stain, Received Pending 07/29/21 Mycobacterial Culture, Received Pending 07/29/21 Gram Stain - Final, Complete 07/29/21 Body Fluid Culture - Final, Complete Discharge Medications Scheduled Spironolactone (Aldactone) 50 Mg Tablet, 100 MG PO DAILY Tenofovir Alafenamide Fumarate (Vemlidy) 25 Mg Tablet, 25 MG PO DAILY, (Reported) Torsemide (Torsemide) 20 Mg Tablet, 40 MG PO BID@09,17 Allergies Coded Allergies: No Known Allergies (Unverified , 03/29/19) Jordyn Engel MD Jul 31, 2021 19:25
== END 2021-07-31 16:35 | disposition home or self-care (01) | DRG 433 ==
LOC: M ED 06:59 → M ED INP 08:37 → ENRESERV 10:35 → M MSPAV 12:03
PROVIDERS: ADMIT Internal Medicine; ATTEND Internal Medicine
PROC: 0W9G3ZZ Drainage of Peritoneal Cavity, Percutaneous Approach (ICD-10-PCS; principal; 2021-07-29)
DX: K70.31 Alcoholic cirrhosis of liver with ascites (principal); B18.1 Chronic viral hepatitis B without delta-agent; D61.818 Other pancytopenia; D70.9 Neutropenia, unspecified; Z79.899 Other long term (current) drug therapy

== ENCOUNTER → 2021-08-07 | Outpatient (CLI) | payer OTHER ==
[~2021-08-07] MED LIST changes: +ALDA50TA2 PO; +TORS20TA2 PO
[2021-08-07 14:00] VITALS: BP 127/76
--- NOTE | 2021-08-07 16:57 | REP ---
INDICATION: ASCITES The patient has a history of ascites COMPARISON: None. TECHNIQUE: The procedure was performed by DAVID Wasserman, under the direct supervision of Dr. Tucker The risks and benefits of the procedure were explained to the patient and an informed consent was obtained both verbally and written. Directly prior to the start of the procedure a formal time-out was completed in the procedure room. The largest pocket of fluid was localized in the right flank using ultrasound guidance. The skin was prepped and draped in a sterile fashion. Ten ML of 1% lidocaine 10 mg/ml was used as a local anesthetic. An 8-[place] multi side-hole catheter was inserted using trocar technique. FINDINGS: Technically successful paracentesis yielding 1700 mL of clear yellow fluid. The patient tolerated the procedure well and there were no immediate complications. After the appropriate amount of monitored convalescence, the patient was discharged from the department. IMPRESSION: Technically successful paracentesis yielding 1700 mL of clear yellow fluid. <Electronically signed by Liat Ny > 08/07/21 1516 <Electronically signed by Milo Tucker > 08/07/21 [id number]
== END ==
LOC: M IRPRO 13:00
PROVIDERS: ATTEND Internal Medicine
DX: K70.31 Alcoholic cirrhosis of liver with ascites (principal)

== ENCOUNTER → 2021-09-23 | Outpatient (CLI) | payer OTHER ==
[~2021-09-23] MED LIST changes: +LIDOCAINE 1% MDV 20ML VIAL As Ordered ONE; -LISI20TA20 PO; +LISI20TA37 PO; +SPIR50TA4 PO
[2021-09-23 11:46] VITALS: BP 115/74
[2021-09-23 11:46] LABS: BASO % 0.4 % (0.0-1.0); EOS % 0.4 % (0.0-3.0); HEMATOCRIT 32.4 % (42.0-52.0); HEMOGLOBIN 10.9 g/dl (13.5-17.5); LYMPH # 1.2 10^3/uL (1.5-5.0); LYMPH % 48.9 % (24.0-44.0); MEAN CORPUSCULAR HEMOGLOBIN 30.6 pg (27.0-33.0); MEAN CORPUSCULAR HGB CONC 33.6 g/dl (32.0-36.5); MONO # 0.3 10^3/uL (0.0-0.8); MONO % 14.5 % (2.0-8.0); NEUTROPHILS % 35.8 % (36.0-66.0); RED BLOOD COUNT 3.56 10^6/uL (4.30-6.10); WHITE BLOOD COUNT 2.4 10^3/uL (4.0-10.0)
[2021-09-23 11:51] LABS: NEUTROPHILS # 0.8 10^3/uL (1.5-8.5); PLATELET COUNT, AUTOMATED 45 10^3/uL (150-450)
== END ==
LOC: M IRPRO 10:01
PROVIDERS: ATTEND Internal Medicine Medical Oncology
DX: D61.811 Other drug-induced pancytopenia (principal)